=== PATIENT | female | born 1930 | race Caucasian/White ===

== ENCOUNTER 2019-03-11 06:02 | Day surgery (SDC) | payer OTHER ==
[2019-03-11 06:18] LABS: ADD MAN DIFF? NO
[2019-03-11 06:24] LABS: BASOPHILS % 0.6 % (0.0-2.0); EOSINOPHILS # 0.4 10^3/ul (0.0-0.5); EOSINOPHILS % 6.3 % (0.0-7.0); HEMATOCRIT 35.7 % (37.0-47.0); HEMOGLOBIN 11.2 g/dl (12.0-16.0); LYMPHOCYTES % 32.4 % (15.0-51.0); MEAN CORPUSCULAR HEMOGLOBIN 27.7 pg (29.0-33.0); MEAN CORPUSCULAR HGB CONC 31.4 g/dl (32.0-37.0); MEAN CORPUSCULAR VOLUME 88.4 fl (82.0-101.0); MEAN PLATELET VOLUME 9.4 fl (7.4-10.4); MONOCYTE # 0.6 10^3/ul (0.3-0.9); MONOCYTES % 9.8 % (0.0-11.0); NEUTROPHIL # 3.2 10^3/ul (1.6-7.5); NEUTROPHILS % 50.6 % (39.0-77.0); PLATELET COUNT 253 10^3/UL (140-415); RED BLOOD COUNT 4.04 10^6/ul (4.20-5.40); RED CELL DISTRIBUTION WIDTH 13.2 % (11.5-14.5)
[2019-03-11 06:24] LABS: WHITE BLOOD COUNT 6.3 10^3/ul (4.8-10.8)
[2019-03-11 06:41] LABS: ALANINE AMINOTRANSFERASE 11 IU/L (13-69); ALBUMIN 4.1 g/dl (3.3-4.9); ALBUMIN/GLOBULIN RATIO 1.24; ALKALINE PHOSPHATASE 86 IU/L (42-121); ANION GAP 9 (5-13); ASPARTATE AMINO TRANSFERASE 23 IU/L (15-46); BILIRUBIN,INDIRECT 0.3 mg/dl (0-1.1); BILIRUBIN,TOTAL 0.3 mg/dl (0.2-1.3); CALCIUM 9.5 mg/dl (8.4-10.2); CARBON DIOXIDE 25 mmol/L (21-31); CHLORIDE 108 mmol/L (97-110); GLUCOSE 109 mg/dl (70-220); POTASSIUM 4.8 mmol/L (3.5-5.1); TOTAL PROTEIN 7.4 g/dl (6.1-8.1)
[2019-03-11 06:45] LABS: PROTIME 13.3 Sec (11.9-14.9)
[2019-03-11] MEDS ORDERED: HEPARIN 1000 UNITS/ML 10 ML INJ (06:58)
[2019-03-11] MEDS ORDERED: HEPARIN 1000 UNITS/NS (A-LINE) 1,000 ML (06:59)
[2019-03-11] MEDS ORDERED: MIDAZOLAM 1 MG/ML 2 ML INJ (06:59)
[2019-03-11] MEDS ORDERED: LIDOCAINE 1% (MDV) 20 ML INJ (06:59)
[2019-03-11] MEDS ORDERED: FENTAnyl 50 MCG/ML VIAL (06:59)
[2019-03-11] MEDS ORDERED: IODIXANOL LOCM 100 ML BTL (06:59)
[2019-03-11 07:13] LABS: BLOOD UREA NITROGEN 37 mg/dl (7-20)
[2019-03-11 07:16] LABS: SODIUM 142 mmol/L (135-144)
[2019-03-11] MEDS: SOD CHLORIDE 0.9% 1,000 ML IV (09:44)
== END 2019-03-11 15:55 | disposition home or self-care (01) ==
LOC: SDS 06:02
DX: E11.51 Type 2 diabetes mellitus with diabetic peripheral angiopathy without gangrene (principal); I70.235 Atherosclerosis of native arteries of right leg with ulceration of other part of foot; L97.519 Non-pressure chronic ulcer of other part of right foot with unspecified severity; I10 Essential (primary) hypertension
CPT/HCPCS: 36246; 75630; 75710; 80053; 82962; 85025; 85610; 85730

== ENCOUNTER 2019-04-04 00:35 | Inpatient (IN) | payer OTHER ==
[2019-04-04] MEDS ORDERED: NITROGLYCERIN (SL) 0.4 MG TAB SL (07:30)
[2019-04-04] MEDS ORDERED: ACETAMINOPHEN 500 MG TAB PO (07:30)
[2019-04-04] MEDS ORDERED: LORAZEPAM 2 MG INJ IV (07:30)
[2019-04-04] MEDS ORDERED: ALBUTEROL/IPRATROPIUM (NEB) 3 ML AMP HHN (07:30)
[2019-04-04] MEDS ORDERED: MAGNESIUM HYDROXIDE 30ML CUP PO (07:30)
[2019-04-04] MEDS ORDERED: NACL 0.9% 3 ML SYG IV (07:30)
[2019-04-04] MEDS ORDERED: DOCUSATE SODIUM 100 MG CAP PO (07:30)
[2019-04-04] MEDS ORDERED: ONDANSETRON 4 MG INJ IV (07:30)
[2019-04-04] MEDS ORDERED: hydrALAzine 20 MG INJ IV (07:30)
[2019-04-04] MEDS: CHOLECALCIFEROL 1,000 UNIT TAB PO (08:29)
[2019-04-04] MEDS: PANTOPRAZOLE (EC) 40 MG TAB PO (08:29)
[2019-04-04] MEDS: METOPROLOL 25 MG TAB PO ×2 (08:30→20:56)
[2019-04-04] MEDS: HEPARIN 5,000 UNIT/1 ML VIAL SC ×2 (08:33→21:02)
[2019-04-04 08:58] LABS: INR 0.93; PROTIME 12.6 Sec (11.9-14.9)
[2019-04-04 08:59] LABS: PARTIAL THROMBOPLASTIN TIME 27.9 Sec (23.0-35.0)
[2019-04-04 09:18] LABS: FREE T4 (FREE THYROXINE) 1.49 ng/dl (0.85-1.93)
[2019-04-04] MEDS: SOD CHLORIDE 0.45% 1,000 ML IV (09:26)
[2019-04-04] MEDS ORDERED: VANCOMYCIN IV PER PHARMACY XX (11:00)
[2019-04-04] MEDS: VANCOMYCIN HCL 1.25 GM in SOD CHLORIDE 0.9% 250 ML IVPB (13:32)
[2019-04-04] MEDS: COLLAGENASE 5 GM (UD JAR) TOP (19:54)
[2019-04-04] MEDS ORDERED: METOPROLOL 25 MG TAB PO (21:00)
[2019-04-04] MEDS: morphine 2 MG INJ IV (21:02)
[2019-04-04] MEDS: ATORVASTATIN 40 MG TAB PO (21:10)
[2019-04-05 06:46] LABS: ADD MAN DIFF? NO
[2019-04-05 06:50] LABS: BASOPHIL # 0.1 10^3/ul (0.0-0.1); BASOPHILS % 0.8 % (0.0-2.0); EOSINOPHILS # 0.3 10^3/ul (0.0-0.5); EOSINOPHILS % 4.7 % (0.0-7.0); HEMATOCRIT 31.5 % (37.0-47.0); HEMOGLOBIN 9.6 g/dl (12.0-16.0); LYMPHOCYTES # 1.9 10^3/ul (0.8-2.9); LYMPHOCYTES % 28.9 % (15.0-51.0); MEAN CORPUSCULAR HGB CONC 30.5 g/dl (32.0-37.0); MEAN CORPUSCULAR VOLUME 91.8 fl (82.0-101.0); MEAN PLATELET VOLUME 9.6 fl (7.4-10.4); MONOCYTE # 0.7 10^3/ul (0.3-0.9); MONOCYTES % 11.5 % (0.0-11.0); NEUTROPHIL # 3.5 10^3/ul (1.6-7.5); NEUTROPHILS % 53.9 % (39.0-77.0); PLATELET COUNT 240 10^3/UL (140-415); RED BLOOD COUNT 3.43 10^6/ul (4.20-5.40)
[2019-04-05 06:50] LABS: WHITE BLOOD COUNT 6.4 10^3/ul (4.8-10.8)
[2019-04-05] MEDS: CIPROFLOXACIN 500 MG TAB PO (07:07)
[2019-04-05 07:10] LABS: HEMOGLOBIN A1C 6.6 % (0-5.9)
[2019-04-05 07:16] LABS: ANION GAP 5 (5-13); BLOOD UREA NITROGEN 31 mg/dl (7-20); CALCIUM 8.4 mg/dl (8.4-10.2); CARBON DIOXIDE 26 mmol/L (21-31); CHLORIDE 109 mmol/L (97-110); CHOL/HDL RATIO 2.9 RATIO; CHOLESTEROL 119 mg/dl (100-200); CREATININE 1.61 mg/dl (0.44-1.00); GLUCOSE 107 mg/dl (70-220); HDL CHOLESTEROL 41 mg/dl (33-92); LDL CHOLESTEROL,CALCULATED 60 mg/dl; MAGNESIUM 1.8 mg/dl (1.7-2.5); PHOSPHORUS 4.3 mg/dl (2.5-4.9); POTASSIUM 5.5 mmol/L (3.5-5.1); SODIUM 140 mmol/L (135-144); TRIGLYCERIDES 90 mg/dl (0-149)
[2019-04-05 08:01] LABS: ALBUMIN 3.4 g/dl (3.3-4.9)
[2019-04-05 08:11] LABS: PREALBUMIN 12.6 mg/dl (17.6-36.0)
[2019-04-05 08:13] LABS: THYROID STIMULATING HORMONE 0.493 MIU/L (0.465-4.680)
[2019-04-05] MEDS: PANTOPRAZOLE (EC) 40 MG TAB PO (08:58)
[2019-04-05] MEDS: ASPIRIN (EC) 81 MG TAB PO (08:58)
[2019-04-05] MEDS: CHOLECALCIFEROL 1,000 UNIT TAB PO (08:58)
[2019-04-05] MEDS: CLOPIDOGREL 75 MG TAB PO (08:58)
[2019-04-05] MEDS: METOPROLOL 25 MG TAB PO ×2 (08:59→20:40)
[2019-04-05] MEDS: COLLAGENASE 5 GM (UD JAR) TOP (08:59)
[2019-04-05] MEDS: LISINOPRIL 5 MG TAB PO (08:59)
[2019-04-05] MEDS ORDERED: CLOPIDOGREL 75 MG TAB PO (09:00)
[2019-04-05] MEDS ORDERED: ASPIRIN (EC) 81 MG TAB PO (09:00)
[2019-04-05] MEDS ORDERED: PANTOPRAZOLE (EC) 40 MG TAB PO (09:00)
[2019-04-05] MEDS: HEPARIN 5,000 UNIT/1 ML VIAL SC ×2 (09:12→21:16)
[2019-04-05] MEDS: DAKINS 0.0125%(1/40) 473 ML SOLUTION TP ×2 (15:57→20:40)
[2019-04-05] MEDS: CIPROFLOXACIN 250 MG TAB PO (17:38)
[2019-04-05] MEDS: ATORVASTATIN 40 MG TAB PO (20:40)
[2019-04-05 20:49] LABS: ANION GAP 8 (5-13); BLOOD UREA NITROGEN 39 mg/dl (7-20); CALCIUM 8.6 mg/dl (8.4-10.2); CARBON DIOXIDE 22 mmol/L (21-31); CHLORIDE 107 mmol/L (97-110); CREATININE 1.66 mg/dl (0.44-1.00); GLUCOSE 233 mg/dl (70-220); POTASSIUM 5.5 mmol/L (3.5-5.1); SODIUM 137 mmol/L (135-144)
[2019-04-05] MEDS: SODIUM POLYSTYRENE 15 GM KIT (POWDER + SORBITOL) PO (21:54)
[2019-04-05] MEDS: ALBUTEROL 0.083% (NEB) 2.5 MG/3 ML AMP HHN (22:08)
[2019-04-06] MEDS: CIPROFLOXACIN 250 MG TAB PO (06:09)
[2019-04-06 08:42] LABS: ADD MAN DIFF? NO
[2019-04-06 08:45] LABS: WHITE BLOOD COUNT 7.2 10^3/ul (4.8-10.8)
[2019-04-06 08:45] LABS: BASOPHIL # 0.1 10^3/ul (0.0-0.1); BASOPHILS % 0.7 % (0.0-2.0); EOSINOPHILS # 0.3 10^3/ul (0.0-0.5); HEMATOCRIT 31.9 % (37.0-47.0); HEMOGLOBIN 9.7 g/dl (12.0-16.0); LYMPHOCYTES # 2.1 10^3/ul (0.8-2.9); LYMPHOCYTES % 28.7 % (15.0-51.0); MEAN CORPUSCULAR HEMOGLOBIN 27.8 pg (29.0-33.0); MEAN CORPUSCULAR HGB CONC 30.4 g/dl (32.0-37.0); MEAN CORPUSCULAR VOLUME 91.4 fl (82.0-101.0); MEAN PLATELET VOLUME 9.8 fl (7.4-10.4); MONOCYTE # 0.8 10^3/ul (0.3-0.9); MONOCYTES % 11.3 % (0.0-11.0); PLATELET COUNT 243 10^3/UL (140-415); RED BLOOD COUNT 3.49 10^6/ul (4.20-5.40); RED CELL DISTRIBUTION WIDTH 13.9 % (11.5-14.5)
[2019-04-06] MEDS: METOPROLOL 25 MG TAB PO (08:58)
[2019-04-06] MEDS: ASPIRIN (EC) 81 MG TAB PO (08:58)
[2019-04-06] MEDS: PANTOPRAZOLE (EC) 40 MG TAB PO (08:59)
[2019-04-06] MEDS: CHOLECALCIFEROL 1,000 UNIT TAB PO (08:59)
[2019-04-06] MEDS: LISINOPRIL 5 MG TAB PO (08:59)
[2019-04-06] MEDS: CLOPIDOGREL 75 MG TAB PO (08:59)
[2019-04-06] MEDS: DAKINS 0.0125%(1/40) 473 ML SOLUTION TP ×2 (09:00→21:35)
[2019-04-06] MEDS: COLLAGENASE 5 GM (UD JAR) TOP (09:00)
[2019-04-06] MEDS: HEPARIN 5,000 UNIT/1 ML VIAL SC ×2 (09:05→21:32)
[2019-04-06 09:16] LABS: ANION GAP 8 (5-13); BLOOD UREA NITROGEN 31 mg/dl (7-20); CALCIUM 8.8 mg/dl (8.4-10.2); CARBON DIOXIDE 24 mmol/L (21-31); CHLORIDE 108 mmol/L (97-110); CREATININE 1.66 mg/dl (0.44-1.00); GLUCOSE 92 mg/dl (70-220); POTASSIUM 4.5 mmol/L (3.5-5.1); SODIUM 140 mmol/L (135-144)
[2019-04-06] MEDS ORDERED: GLUCAGON 1 MG INJ IM (11:00)
[2019-04-06] MEDS ORDERED: GLUCOSE GEL 15 GRAM TUBE PO ×2 (11:00)
[2019-04-06] MEDS ORDERED: DEXTROSE 50% 50 ML SYRINGE IV ×2 (11:00)
[2019-04-06] MEDS ORDERED: GLUCOSE GEL 15 GRAM TUBE BUCCAL (11:00)
[2019-04-06] MEDS: INSULIN ASPART [NOVOLOG] 3 ML PEN SC ×3 (11:40→21:33)
[2019-04-06] MEDS: LACTOBACILLUS RHAMNOSUS CAP PO ×2 (12:50→21:27)
[2019-04-06] MEDS: VANCOMYCIN 1 GM 250 ML IVPB (12:53)
[2019-04-06] MEDS: MEROPENEM 1 GM/50ML(PMX) 50 ML IVPB (18:50)
[2019-04-06] MEDS: ATORVASTATIN 40 MG TAB PO (21:27)
[2019-04-06] MEDS: METOPROLOL 50 MG TAB PO (21:27)
[2019-04-07] MEDS: ACCU-CHEK XX (02:00)
[2019-04-07 05:17] LABS: ADD MAN DIFF? NO
[2019-04-07 05:23] LABS: BASOPHIL # 0.1 10^3/ul (0.0-0.1); BASOPHILS % 1.1 % (0.0-2.0); EOSINOPHILS # 0.5 10^3/ul (0.0-0.5); EOSINOPHILS % 7.4 % (0.0-7.0); HEMATOCRIT 31.4 % (37.0-47.0); HEMOGLOBIN 9.5 g/dl (12.0-16.0); LYMPHOCYTES # 1.8 10^3/ul (0.8-2.9); LYMPHOCYTES % 28.5 % (15.0-51.0); MEAN CORPUSCULAR HEMOGLOBIN 27.4 pg (29.0-33.0); MEAN CORPUSCULAR HGB CONC 30.3 g/dl (32.0-37.0); MEAN CORPUSCULAR VOLUME 90.5 fl (82.0-101.0); MEAN PLATELET VOLUME 9.7 fl (7.4-10.4); MONOCYTE # 0.7 10^3/ul (0.3-0.9); NEUTROPHIL # 3.3 10^3/ul (1.6-7.5); NEUTROPHILS % 51.8 % (39.0-77.0); PLATELET COUNT 249 10^3/UL (140-415); RED BLOOD COUNT 3.47 10^6/ul (4.20-5.40); RED CELL DISTRIBUTION WIDTH 14.1 % (11.5-14.5)
[2019-04-07 05:23] LABS: WHITE BLOOD COUNT 6.4 10^3/ul (4.8-10.8)
[2019-04-07] MEDS: MEROPENEM 1 GM/50ML(PMX) 50 ML IVPB ×2 (05:39→17:29)
[2019-04-07 05:46] LABS: ANION GAP 7 (5-13); BLOOD UREA NITROGEN 33 mg/dl (7-20); CALCIUM 8.5 mg/dl (8.4-10.2); CARBON DIOXIDE 24 mmol/L (21-31); CHLORIDE 110 mmol/L (97-110); GLUCOSE 104 mg/dl (70-220); SODIUM 141 mmol/L (135-144)
[2019-04-07 05:55] LABS: HEMOGLOBIN A1C 6.8 % (0-5.9)
[2019-04-07] MEDS: INSULIN ASPART [NOVOLOG] 3 ML PEN SC ×4 (07:50→21:21)
[2019-04-07 08:00] LABS: ERYTHROCYTE SEDIMENTATION RATE 45 mm/Hr (0-30)
[2019-04-07] MEDS: CHOLECALCIFEROL 1,000 UNIT TAB PO (08:44)
[2019-04-07] MEDS: CLOPIDOGREL 75 MG TAB PO (08:46)
[2019-04-07] MEDS: METOPROLOL 50 MG TAB PO ×2 (08:46→20:51)
[2019-04-07] MEDS: LACTOBACILLUS RHAMNOSUS CAP PO ×2 (08:46→20:50)
[2019-04-07] MEDS: ASPIRIN (EC) 81 MG TAB PO (08:47)
[2019-04-07] MEDS: LISINOPRIL 5 MG TAB PO (08:47)
[2019-04-07] MEDS: PANTOPRAZOLE (EC) 40 MG TAB PO (08:47)
[2019-04-07] MEDS: HEPARIN 5,000 UNIT/1 ML VIAL SC (08:48)
[2019-04-07] MEDS: COLLAGENASE 5 GM (UD JAR) TOP (08:49)
[2019-04-07] MEDS: DAKINS 0.0125%(1/40) 473 ML SOLUTION TP ×2 (08:49→21:22)
[2019-04-07] MEDS: ATORVASTATIN 40 MG TAB PO (20:50)
[2019-04-08] MEDS: ACCU-CHEK XX (02:00)
[2019-04-08 05:00] LABS: ADD MAN DIFF? NO
[2019-04-08 05:01] LABS: WHITE BLOOD COUNT 6.5 10^3/ul (4.8-10.8)
[2019-04-08 05:01] LABS: BASOPHILS % 0.6 % (0.0-2.0); EOSINOPHILS # 0.4 10^3/ul (0.0-0.5); EOSINOPHILS % 5.8 % (0.0-7.0); HEMATOCRIT 29.7 % (37.0-47.0); HEMOGLOBIN 9.2 g/dl (12.0-16.0); LYMPHOCYTES # 1.8 10^3/ul (0.8-2.9); LYMPHOCYTES % 28.1 % (15.0-51.0); MEAN CORPUSCULAR VOLUME 90.3 fl (82.0-101.0); MEAN PLATELET VOLUME 9.7 fl (7.4-10.4); MONOCYTE # 0.7 10^3/ul (0.3-0.9); NEUTROPHIL # 3.5 10^3/ul (1.6-7.5); NEUTROPHILS % 54.2 % (39.0-77.0); PLATELET COUNT 253 10^3/UL (140-415); RED BLOOD COUNT 3.29 10^6/ul (4.20-5.40); RED CELL DISTRIBUTION WIDTH 14.1 % (11.5-14.5)
[2019-04-08 05:19] LABS: PHOSPHORUS 4.7 mg/dl (2.5-4.9)
[2019-04-08 05:19] LABS: MAGNESIUM 1.6 mg/dl (1.7-2.5)
[2019-04-08 05:50] LABS: THYROID STIMULATING HORMONE 0.522 MIU/L (0.465-4.680)
[2019-04-08] MEDS: MEROPENEM 1 GM/50ML(PMX) 50 ML IVPB ×2 (06:00→18:41)
[2019-04-08 06:11] LABS: ANION GAP 8 (5-13); BLOOD UREA NITROGEN 39 mg/dl (7-20); CALCIUM 8.6 mg/dl (8.4-10.2); CARBON DIOXIDE 20 mmol/L (21-31); CHLORIDE 112 mmol/L (97-110); CREATININE 1.68 mg/dl (0.44-1.00); GLUCOSE 118 mg/dl (70-220); POTASSIUM 4.5 mmol/L (3.5-5.1); SODIUM 140 mmol/L (135-144)
[2019-04-08] MEDS: LISINOPRIL 5 MG TAB PO (09:00)
[2019-04-08] MEDS: METOPROLOL 50 MG TAB PO ×2 (09:00→21:00)
[2019-04-08] MEDS: INSULIN ASPART [NOVOLOG] 3 ML PEN SC ×4 (09:00→21:43)
[2019-04-08] MEDS: COLLAGENASE 5 GM (UD JAR) TOP (09:00)
[2019-04-08] MEDS: PANTOPRAZOLE (EC) 40 MG TAB PO (09:10)
[2019-04-08] MEDS: LACTOBACILLUS RHAMNOSUS CAP PO ×2 (09:10→21:32)
[2019-04-08] MEDS: CHOLECALCIFEROL 1,000 UNIT TAB PO (09:10)
[2019-04-08] MEDS: DAKINS 0.0125%(1/40) 473 ML SOLUTION TP ×2 (09:11→21:44)
[2019-04-08] MEDS: ACETAMINOPHEN 325 MG TAB PO (10:54)
[2019-04-08 13:54] LABS: VANCOMYCIN,TROUGH 9.1 ug/ml (10.0-20.0)
[2019-04-08] MEDS: VANCOMYCIN 1 GM 250 ML IVPB (14:22)
[2019-04-08] MEDS: LIDOCAINE 1% (MPF) 5 ML VIAL SC (15:05)
[2019-04-08] MEDS: LEVOFLOXACIN 500 MG TAB PO (21:31)
[2019-04-08] MEDS: ATORVASTATIN 40 MG TAB PO (21:33)
[2019-04-09] MEDS: ACCU-CHEK XX (02:00)
[2019-04-09 05:56] LABS: ADD MAN DIFF? NO
[2019-04-09 06:06] LABS: WHITE BLOOD COUNT 8.3 10^3/ul (4.8-10.8)
[2019-04-09 06:06] LABS: BASOPHIL # 0.1 10^3/ul (0.0-0.1); BASOPHILS % 0.6 % (0.0-2.0); EOSINOPHILS # 0.4 10^3/ul (0.0-0.5); EOSINOPHILS % 5.3 % (0.0-7.0); HEMATOCRIT 34.2 % (37.0-47.0); HEMOGLOBIN 10.4 g/dl (12.0-16.0); LYMPHOCYTES # 2.3 10^3/ul (0.8-2.9); LYMPHOCYTES % 28.3 % (15.0-51.0); MEAN CORPUSCULAR HEMOGLOBIN 27.8 pg (29.0-33.0); MEAN CORPUSCULAR HGB CONC 30.4 g/dl (32.0-37.0); MEAN CORPUSCULAR VOLUME 91.4 fl (82.0-101.0); MEAN PLATELET VOLUME 9.8 fl (7.4-10.4); MONOCYTE # 0.7 10^3/ul (0.3-0.9); NEUTROPHIL # 4.8 10^3/ul (1.6-7.5); NEUTROPHILS % 57.6 % (39.0-77.0); PLATELET COUNT 260 10^3/UL (140-415); RED BLOOD COUNT 3.74 10^6/ul (4.20-5.40)
[2019-04-09 06:39] LABS: ANION GAP 9 (5-13); BLOOD UREA NITROGEN 41 mg/dl (7-20); CALCIUM 9.1 mg/dl (8.4-10.2); CARBON DIOXIDE 23 mmol/L (21-31); CHLORIDE 108 mmol/L (97-110); CREATININE 1.62 mg/dl (0.44-1.00); GLUCOSE 115 mg/dl (70-220); POTASSIUM 5.2 mmol/L (3.5-5.1); SODIUM 140 mmol/L (135-144)
[2019-04-09] MEDS: MEROPENEM 1 GM/50ML(PMX) 50 ML IVPB ×2 (06:48→12:34)
[2019-04-09] MEDS: INSULIN ASPART [NOVOLOG] 3 ML PEN SC ×2 (07:50→11:40)
[2019-04-09] MEDS: LACTOBACILLUS RHAMNOSUS CAP PO (08:30)
[2019-04-09] MEDS: CHOLECALCIFEROL 1,000 UNIT TAB PO (08:30)
[2019-04-09] MEDS: HYDROCODONE/APAP (5/325) TAB PO (08:30)
[2019-04-09] MEDS: PANTOPRAZOLE (EC) 40 MG TAB PO (08:30)
[2019-04-09] MEDS: METOPROLOL 50 MG TAB PO (08:31)
[2019-04-09] MEDS: APIXABAN 5 MG TABLET PO (08:31)
[2019-04-09] MEDS: LISINOPRIL 5 MG TAB PO (08:32)
[2019-04-09] MEDS: COLLAGENASE 5 GM (UD JAR) TOP (08:56)
[2019-04-09] MEDS: DAKINS 0.0125%(1/40) 473 ML SOLUTION TP (08:56)
[2019-04-10] MEDS ORDERED: VANCOMYCIN HCL 1.25 GM in SOD CHLORIDE 0.9% 250 ML IVPB (12:00)
== END 2019-04-09 15:57 | disposition home health service (06) | DRG 638 ==
LOC: TEL 00:35 → MS1 04-06 07:08
PROVIDERS: Hospitalist
PROC: 02HV33Z Insertion of Infusion Device into Superior Vena Cava, Percutaneous Approach (ICD-10-PCS; principal; 2019-04-08)
DX: E11.621 Type 2 diabetes mellitus with foot ulcer (principal); L03.115 Cellulitis of right lower limb; I13.0 Hypertensive heart and chronic kidney disease with heart failure and stage 1 through stage 4 chronic kidney disease, or unspecified chronic kidney disease; I50.30 Unspecified diastolic (congestive) heart failure; M86.171 Other acute osteomyelitis, right ankle and foot; E11.69 Type 2 diabetes mellitus with other specified complication; L97.519 Non-pressure chronic ulcer of other part of right foot with unspecified severity; E11.51 Type 2 diabetes mellitus with diabetic peripheral angiopathy without gangrene; E11.22 Type 2 diabetes mellitus with diabetic chronic kidney disease; I48.91 Unspecified atrial fibrillation; I08.3 Combined rheumatic disorders of mitral, aortic and tricuspid valves; I99.8 Other disorder of circulatory system; N18.3 Chronic kidney disease, stage 3 (moderate); E88.81 Metabolic syndrome and other insulin resistance; D63.8 Anemia in other chronic diseases classified elsewhere; R62.7 Adult failure to thrive; I70.201 Unspecified atherosclerosis of native arteries of extremities, right leg; Z88.0 Allergy status to penicillin
CPT/HCPCS: 36569; 71045; 73718; 76937; 80048; 80061; 80202; 82040; 82962; 83036; 83735; 84100; 84134; 84439; 84443; 85025; 85610; 85651; 85730; 87040-91; 87070; 92610; 93005; 93306; 94664; 97162; 97167

== ENCOUNTER 2019-04-22 06:06 | Inpatient (IN) | payer OTHER ==
[2019-04-22 07:03] LABS: ADD MAN DIFF? NO
[2019-04-22 07:08] LABS: BASOPHIL # 0.1 10^3/ul (0.0-0.1); BASOPHILS % 0.8 % (0.0-2.0); EOSINOPHILS # 0.4 10^3/ul (0.0-0.5); EOSINOPHILS % 4.5 % (0.0-7.0); HEMATOCRIT 29.6 % (37.0-47.0); HEMOGLOBIN 9.1 g/dl (12.0-16.0); LYMPHOCYTES # 2.1 10^3/ul (0.8-2.9); LYMPHOCYTES % 25.7 % (15.0-51.0); MEAN CORPUSCULAR HGB CONC 30.7 g/dl (32.0-37.0); MEAN CORPUSCULAR VOLUME 87.8 fl (82.0-101.0); MEAN PLATELET VOLUME 9.6 fl (7.4-10.4); MONOCYTE # 0.8 10^3/ul (0.3-0.9); MONOCYTES % 9.5 % (0.0-11.0); NEUTROPHIL # 4.9 10^3/ul (1.6-7.5); NEUTROPHILS % 59.3 % (39.0-77.0); PLATELET COUNT 292 10^3/UL (140-415); RED BLOOD COUNT 3.37 10^6/ul (4.20-5.40); RED CELL DISTRIBUTION WIDTH 13.3 % (11.5-14.5)
[2019-04-22 07:08] LABS: WHITE BLOOD COUNT 8.3 10^3/ul (4.8-10.8)
[2019-04-22 07:12] LABS: HOLD TRANSMISSIONS 1
[2019-04-22 07:25] LABS: INR 1.03; PROTIME 13.6 Sec (11.9-14.9); PT RATIO 1.1
[2019-04-22 07:26] LABS: PARTIAL THROMBOPLASTIN TIME 31.1 Sec (23.0-35.0)
[2019-04-22 07:30] LABS: ALANINE AMINOTRANSFERASE 15 IU/L (13-69); ALBUMIN 3.3 g/dl (3.3-4.9); ALKALINE PHOSPHATASE 90 IU/L (42-121); ANION GAP 10 (5-13); ASPARTATE AMINO TRANSFERASE 24 IU/L (15-46); BILIRUBIN,INDIRECT 0.3 mg/dl (0-1.1); BILIRUBIN,TOTAL 0.3 mg/dl (0.2-1.3); CALCIUM 8.7 mg/dl (8.4-10.2); CARBON DIOXIDE 23 mmol/L (21-31); CHLORIDE 106 mmol/L (97-110); GLUCOSE 87 mg/dl (70-220); POTASSIUM 5.1 mmol/L (3.5-5.1); SODIUM 139 mmol/L (135-144); TOTAL PROTEIN 6.6 g/dl (6.1-8.1)
[2019-04-22] MEDS: THROMBIN 5000 UNIT VIAL TOP (07:30)
[2019-04-22] MEDS ORDERED: GELATIN SIZE 100 SPONGE (07:30)
[2019-04-22] MEDS ORDERED: LIDOCAINE 1% (MPF) 30 ML INJ (07:30)
[2019-04-22] MEDS: GELATIN 2 SQ INCH SPONGE TOP (07:30)
[2019-04-22] MEDS ORDERED: THROMBIN 5000 UNIT VIAL (07:30)
[2019-04-22] MEDS: HEPARIN 1000 UNITS/ML 10 ML INJ IRR (07:30)
[2019-04-22] MEDS ORDERED: HEPARIN 1000 UNITS/ML 10 ML INJ ×2 (07:31→09:11)
[2019-04-22 07:32] LABS: BLOOD UREA NITROGEN 39 mg/dl (7-20); CREATININE 1.69 mg/dl (0.44-1.00)
[2019-04-22] MEDS ORDERED: SOD CHLORIDE 0.9% 1,000 ML IV (08:00)
[2019-04-22] MEDS ORDERED: FENTAnyl 50 MCG/ML VIAL (08:20)
[2019-04-22] MEDS ORDERED: ONDANSETRON 4 MG INJ IV ×2 (09:30→12:00)
[2019-04-22] MEDS ORDERED: ALBUTEROL 0.083% (NEB) 2.5 MG/3 ML AMP HHN (09:30)
[2019-04-22] MEDS ORDERED: HYDROmorphONE 1 MG/5 ML IV SYRINGE IV (09:30)
[2019-04-22] MEDS ORDERED: METOCLOPRAMIDE 10 MG INJ IV (09:30)
[2019-04-22] MEDS ORDERED: DIPHENHYDRAMINE 50 MG INJ IV (09:30)
[2019-04-22] MEDS ORDERED: FENTAnyl 50 MCG/ML VIAL IV (09:30)
[2019-04-22] MEDS ORDERED: PROTAMINE 250 MG INJ (09:40)
[2019-04-22] MEDS ORDERED: ROCURONIUM 50 MG INJ (10:00)
[2019-04-22] MEDS ORDERED: LIDOCAINE 100 MG SYRINGE (10:00)
[2019-04-22] MEDS ORDERED: SUGAMMADEX SODIUM 200 MG/2 ML VIAL IV (10:00)
[2019-04-22] MEDS ORDERED: CLINDAMYCIN 600 MG/D5W (PMX) 50 ML IVPB (10:00)
[2019-04-22] MEDS ORDERED: PROPOFOL 20 ML (10:00)
[2019-04-22] MEDS ORDERED: SUCCINYLCHOLINE CHLORIDE 100 MG/5 ML SYG IV (10:00)
[2019-04-22] MEDS ORDERED: ALBUTEROL/IPRATROPIUM (NEB) 3 ML AMP HHN (12:00)
[2019-04-22] MEDS ORDERED: LORAZEPAM 2 MG INJ IV (12:00)
[2019-04-22] MEDS ORDERED: hydrALAzine 20 MG INJ IV (12:00)
[2019-04-22] MEDS ORDERED: MECLIZINE 25 MG TAB PO (12:00)
[2019-04-22] MEDS ORDERED: MAGNESIUM HYDROXIDE 30ML CUP PO (12:00)
[2019-04-22] MEDS ORDERED: NITROGLYCERIN (SL) 0.4 MG TAB SL (12:00)
[2019-04-22] MEDS ORDERED: NACL 0.9% 3 ML SYG IV (12:00)
[2019-04-22] MEDS ORDERED: DOCUSATE SODIUM 100 MG CAP PO (12:00)
[2019-04-22] MEDS: INSULIN ASPART [NOVOLOG] 3 ML PEN SC ×3 (13:00→20:48)
[2019-04-22] MEDS ORDERED: GABAPENTIN 300 MG CAP (13:56)
[2019-04-22] MEDS: GABAPENTIN 300 MG CAP PO ×2 (14:02→20:44)
[2019-04-22] MEDS: morphine 2 MG INJ IV (14:17)
[2019-04-22] MEDS: ERTAPENEM SODIUM 0.5 GM in SOD CHLORIDE 0.9% 100 ML IVPB (15:43)
[2019-04-22] MEDS: LEVOFLOXACIN 500 MG TAB PO (17:38)
[2019-04-22 18:39] LABS: C-REACTIVE PROTEIN 2.5 mg/dl (0.0-0.9)
[2019-04-22 19:27] LABS: ERYTHROCYTE SEDIMENTATION RATE 35 mm/Hr (0-30)
[2019-04-22 20:11] LABS: PROCALCITONIN 0.05 ng/mL (0.00-0.10)
[2019-04-22] MEDS: ATORVASTATIN 10 MG TAB PO (20:44)
[2019-04-22] MEDS: METOPROLOL 25 MG TAB PO (20:45)
[2019-04-22 22:36] LABS: FREE T4 (FREE THYROXINE) 1.94 ng/dl (0.85-1.93)
[2019-04-23] MEDS: HYDROCODONE/APAP (5/325) TAB PO (00:47)
[2019-04-23] MEDS: SOD CHLORIDE 0.9% 1,000 ML IV (01:45)
[2019-04-23] MEDS: ACCU-CHEK XX (01:54)
[2019-04-23 05:39] LABS: ADD MAN DIFF? NO
[2019-04-23 05:44] LABS: BASOPHILS % 0.4 % (0.0-2.0); EOSINOPHILS % 0.1 % (0.0-7.0); HEMATOCRIT 24.3 % (37.0-47.0); HEMOGLOBIN 7.6 g/dl (12.0-16.0); LYMPHOCYTES # 1.4 10^3/ul (0.8-2.9); LYMPHOCYTES % 13.8 % (15.0-51.0); MEAN CORPUSCULAR HEMOGLOBIN 27.6 pg (29.0-33.0); MEAN CORPUSCULAR HGB CONC 31.3 g/dl (32.0-37.0); MEAN CORPUSCULAR VOLUME 88.4 fl (82.0-101.0); MEAN PLATELET VOLUME 9.6 fl (7.4-10.4); MONOCYTE # 0.9 10^3/ul (0.3-0.9); MONOCYTES % 9.5 % (0.0-11.0); NEUTROPHIL # 7.5 10^3/ul (1.6-7.5); NEUTROPHILS % 75.9 % (39.0-77.0); PLATELET COUNT 231 10^3/UL (140-415); RED BLOOD COUNT 2.75 10^6/ul (4.20-5.40); RED CELL DISTRIBUTION WIDTH 13.5 % (11.5-14.5)
[2019-04-23 05:44] LABS: WHITE BLOOD COUNT 9.9 10^3/ul (4.8-10.8)
[2019-04-23 06:16] LABS: ANION GAP 8 (5-13); BLOOD UREA NITROGEN 27 mg/dl (7-20); CALCIUM 7.4 mg/dl (8.4-10.2); CARBON DIOXIDE 20 mmol/L (21-31); CHLORIDE 112 mmol/L (97-110); CHOL/HDL RATIO 2.8 RATIO; CHOLESTEROL 84 mg/dl (100-200); CREATININE 1.33 mg/dl (0.44-1.00); GLUCOSE 85 mg/dl (70-220); HDL CHOLESTEROL 29 mg/dl (33-92); LDL CHOLESTEROL,CALCULATED 38 mg/dl; MAGNESIUM 1.7 mg/dl (1.7-2.5); PHOSPHORUS 3.2 mg/dl (2.5-4.9); POTASSIUM 5.1 mmol/L (3.5-5.1); SODIUM 140 mmol/L (135-144); TRIGLYCERIDES 84 mg/dl (0-149)
[2019-04-23 06:44] LABS: THYROID STIMULATING HORMONE 0.307 MIU/L (0.465-4.680)
[2019-04-23 07:28] LABS: HEMOGLOBIN A1C 6.4 % (0-5.9)
[2019-04-23] MEDS: INSULIN ASPART [NOVOLOG] 3 ML PEN SC ×4 (07:35→21:00)
[2019-04-23] MEDS: DAKINS 0.0125%(1/40) 473 ML SOLUTION TP (08:29)
[2019-04-23] MEDS: PANTOPRAZOLE (EC) 40 MG TAB PO (08:37)
[2019-04-23] MEDS: GABAPENTIN 300 MG CAP PO ×3 (08:37→20:58)
[2019-04-23] MEDS: CHOLECALCIFEROL 1,000 UNIT TAB PO (08:37)
[2019-04-23] MEDS: METOPROLOL 25 MG TAB PO ×2 (08:38→20:53)
[2019-04-23] MEDS: ERTAPENEM SODIUM 0.5 GM in SOD CHLORIDE 0.9% 100 ML IVPB (13:29)
[2019-04-23] MEDS: LACTATED RINGER'S 500 ML IV (16:21)
[2019-04-23] MEDS: ACETAMINOPHEN 325 MG TAB PO (16:53)
[2019-04-23] MEDS: LACTATED RINGER'S 1,000 ML IV (19:43)
[2019-04-23] MEDS: ATORVASTATIN 10 MG TAB PO (20:58)
[2019-04-23] MEDS: APIXABAN 5 MG TABLET PO (20:58)
[2019-04-24] MEDS: MELATONIN 3 MG TABLET PO ×2 (01:46→22:26)
[2019-04-24] MEDS: ACCU-CHEK XX (02:00)
[2019-04-24 06:22] LABS: ADD MAN DIFF? NO
[2019-04-24 06:29] LABS: WHITE BLOOD COUNT 13.6 10^3/ul (4.8-10.8)
[2019-04-24 06:29] LABS: BASOPHILS % 0.3 % (0.0-2.0); EOSINOPHILS # 0.1 10^3/ul (0.0-0.5); EOSINOPHILS % 0.4 % (0.0-7.0); LYMPHOCYTES # 1.4 10^3/ul (0.8-2.9); MEAN CORPUSCULAR HEMOGLOBIN 27.3 pg (29.0-33.0); MEAN CORPUSCULAR HGB CONC 30.8 g/dl (32.0-37.0); MEAN CORPUSCULAR VOLUME 88.7 fl (82.0-101.0); MEAN PLATELET VOLUME 9.5 fl (7.4-10.4); MONOCYTE # 1.2 10^3/ul (0.3-0.9); MONOCYTES % 9.1 % (0.0-11.0); NEUTROPHIL # 10.8 10^3/ul (1.6-7.5); NEUTROPHILS % 79.7 % (39.0-77.0); PLATELET COUNT 225 10^3/UL (140-415); RED BLOOD COUNT 2.93 10^6/ul (4.20-5.40); RED CELL DISTRIBUTION WIDTH 13.7 % (11.5-14.5)
[2019-04-24 07:03] LABS: ANION GAP 7 (5-13); BLOOD UREA NITROGEN 29 mg/dl (7-20); CALCIUM 7.6 mg/dl (8.4-10.2); CARBON DIOXIDE 22 mmol/L (21-31); CHLORIDE 108 mmol/L (97-110); CREATININE 1.66 mg/dl (0.44-1.00); GLUCOSE 76 mg/dl (70-220); POTASSIUM 5.2 mmol/L (3.5-5.1); SODIUM 137 mmol/L (135-144)
[2019-04-24] MEDS: INSULIN ASPART [NOVOLOG] 3 ML PEN SC ×4 (07:55→21:00)
[2019-04-24] MEDS: METOPROLOL 25 MG TAB PO ×2 (08:37→21:00)
[2019-04-24] MEDS: APIXABAN 5 MG TABLET PO ×2 (08:37→22:20)
[2019-04-24] MEDS: PANTOPRAZOLE (EC) 40 MG TAB PO (08:37)
[2019-04-24] MEDS: GABAPENTIN 300 MG CAP PO ×3 (08:37→22:20)
[2019-04-24] MEDS: DAKINS 0.0125%(1/40) 473 ML SOLUTION TP (08:37)
[2019-04-24] MEDS: CHOLECALCIFEROL 1,000 UNIT TAB PO (08:37)
[2019-04-24] MEDS: LACTATED RINGER'S 1,000 ML IV (10:18)
[2019-04-24] MEDS: ERTAPENEM SODIUM 0.5 GM in SOD CHLORIDE 0.9% 100 ML IVPB (14:59)
[2019-04-24] MEDS: LEVOFLOXACIN 500 MG TAB PO (17:39)
[2019-04-24] MEDS ORDERED: MELATONIN 3 MG TABLET PO (21:00)
[2019-04-24] MEDS: ATORVASTATIN 10 MG TAB PO (22:20)
[2019-04-25] MEDS: LACTATED RINGER'S 1,000 ML IV ×2 (00:24→11:48)
[2019-04-25] MEDS: ACETAMINOPHEN 325 MG TAB PO (00:33)
[2019-04-25] MEDS: ACCU-CHEK XX (02:00)
[2019-04-25 06:35] LABS: ADD MAN DIFF? NO
[2019-04-25 06:47] LABS: BASOPHILS % 0.3 % (0.0-2.0); EOSINOPHILS # 0.1 10^3/ul (0.0-0.5); EOSINOPHILS % 0.8 % (0.0-7.0); HEMATOCRIT 23.6 % (37.0-47.0); HEMOGLOBIN 7.3 g/dl (12.0-16.0); LYMPHOCYTES # 1.8 10^3/ul (0.8-2.9); LYMPHOCYTES % 15.2 % (15.0-51.0); MEAN CORPUSCULAR HEMOGLOBIN 27.7 pg (29.0-33.0); MEAN CORPUSCULAR HGB CONC 30.9 g/dl (32.0-37.0); MEAN CORPUSCULAR VOLUME 89.4 fl (82.0-101.0); MEAN PLATELET VOLUME 9.7 fl (7.4-10.4); MONOCYTES % 8.9 % (0.0-11.0); NEUTROPHIL # 8.6 10^3/ul (1.6-7.5); NEUTROPHILS % 74.1 % (39.0-77.0); PLATELET COUNT 230 10^3/UL (140-415); RED BLOOD COUNT 2.64 10^6/ul (4.20-5.40); RED CELL DISTRIBUTION WIDTH 13.4 % (11.5-14.5)
[2019-04-25 06:47] LABS: WHITE BLOOD COUNT 11.6 10^3/ul (4.8-10.8)
[2019-04-25 07:05] LABS: ANION GAP 7 (5-13); BLOOD UREA NITROGEN 25 mg/dl (7-20); CALCIUM 7.4 mg/dl (8.4-10.2); CARBON DIOXIDE 22 mmol/L (21-31); CHLORIDE 107 mmol/L (97-110); GLUCOSE 91 mg/dl (70-220); POTASSIUM 4.9 mmol/L (3.5-5.1); SODIUM 136 mmol/L (135-144)
[2019-04-25] MEDS: INSULIN ASPART [NOVOLOG] 3 ML PEN SC ×4 (07:55→20:48)
[2019-04-25] MEDS: CHOLECALCIFEROL 1,000 UNIT TAB PO (08:35)
[2019-04-25] MEDS: PANTOPRAZOLE (EC) 40 MG TAB PO (08:35)
[2019-04-25] MEDS: GABAPENTIN 300 MG CAP PO ×3 (08:35→20:50)
[2019-04-25] MEDS: APIXABAN 5 MG TABLET PO ×2 (08:36→20:49)
[2019-04-25] MEDS: DAKINS 0.0125%(1/40) 473 ML SOLUTION TP (08:36)
[2019-04-25] MEDS: METOPROLOL 25 MG TAB PO ×2 (08:37→20:49)
[2019-04-25 12:59] LABS: LACTIC ACID 0.9 mmol/L (0.5-2.0)
[2019-04-25 13:29] LABS: ETHANOL < 10.0 mg/dl (0-0)
[2019-04-25 13:39] LABS: PROCALCITONIN 0.39 ng/mL (0.00-0.10)
[2019-04-25] MEDS: ERTAPENEM SODIUM 0.5 GM in SOD CHLORIDE 0.9% 100 ML IVPB (15:41)
[2019-04-25 18:26] LABS: ADD UMIC YES; UR ASCORBIC ACID NEGATIVE (NEGATIVE); UR BACTERIA FEW /HPF (NONE SEEN); UR BILIRUBIN (Dip) NEGATIVE (NEGATIVE); UR BLOOD (Dip) 1+ mg/dL (NEGATIVE); UR CLARITY CLEAR (CLEAR); UR COLOR YELLOW (YELLOW); UR GLUCOSE (Dip) NEGATIVE (NEGATIVE); UR KETONES (Dip) NEGATIVE (NEGATIVE); UR LEUKOCYTE ESTERASE (Dip) NEGATIVE Leu/ul (NEGATIVE); UR NITRITE (Dip) NEGATIVE (NEGATIVE); UR RBC 1 /HPF (0-5); UR SPECIFIC GRAVITY (Dip) 1.012 (1.003-1.030); UR TOTAL PROTEIN (Dip) 2+ mg/dl (NEGATIVE); UR UROBILINOGEN (Dip) NEGATIVE (NEGATIVE); UR WBC 2 /HPF (0-5)
[2019-04-25] MEDS: ATORVASTATIN 10 MG TAB PO (20:48)
[2019-04-26] MEDS: LACTATED RINGER'S 1,000 ML IV ×2 (01:24→13:23)
[2019-04-26] MEDS: ACCU-CHEK XX (02:00)
[2019-04-26] MEDS: ACETAMINOPHEN 325 MG TAB PO (04:05)
[2019-04-26 07:02] LABS: ADD MAN DIFF? NO
[2019-04-26 07:05] LABS: WHITE BLOOD COUNT 9.5 10^3/ul (4.8-10.8)
[2019-04-26 07:05] LABS: BASOPHILS % 0.3 % (0.0-2.0); EOSINOPHILS # 0.1 10^3/ul (0.0-0.5); EOSINOPHILS % 1.3 % (0.0-7.0); HEMATOCRIT 24.4 % (37.0-47.0); HEMOGLOBIN 7.6 g/dl (12.0-16.0); LYMPHOCYTES # 0.9 10^3/ul (0.8-2.9); LYMPHOCYTES % 9.9 % (15.0-51.0); MEAN CORPUSCULAR HEMOGLOBIN 27.5 pg (29.0-33.0); MEAN CORPUSCULAR HGB CONC 31.1 g/dl (32.0-37.0); MEAN CORPUSCULAR VOLUME 88.4 fl (82.0-101.0); MEAN PLATELET VOLUME 9.3 fl (7.4-10.4); MONOCYTE # 0.9 10^3/ul (0.3-0.9); NEUTROPHIL # 7.5 10^3/ul (1.6-7.5); NEUTROPHILS % 79.2 % (39.0-77.0); PLATELET COUNT 240 10^3/UL (140-415); RED BLOOD COUNT 2.76 10^6/ul (4.20-5.40); RED CELL DISTRIBUTION WIDTH 13.6 % (11.5-14.5)
[2019-04-26 07:35] LABS: ANION GAP 6 (5-13); BLOOD UREA NITROGEN 29 mg/dl (7-20); CALCIUM 7.5 mg/dl (8.4-10.2); CARBON DIOXIDE 20 mmol/L (21-31); CHLORIDE 107 mmol/L (97-110); GLUCOSE 82 mg/dl (70-220); POTASSIUM 5.9 mmol/L (3.5-5.1); SODIUM 133 mmol/L (135-144)
[2019-04-26] MEDS: INSULIN ASPART [NOVOLOG] 3 ML PEN SC ×4 (07:55→20:40)
[2019-04-26] MEDS: METOPROLOL 25 MG TAB PO ×2 (09:00→20:39)
[2019-04-26] MEDS: GABAPENTIN 300 MG CAP PO ×3 (09:10→20:40)
[2019-04-26] MEDS: APIXABAN 5 MG TABLET PO ×2 (09:10→20:40)
[2019-04-26] MEDS: PANTOPRAZOLE (EC) 40 MG TAB PO (09:10)
[2019-04-26] MEDS: CHOLECALCIFEROL 1,000 UNIT TAB PO (09:10)
[2019-04-26] MEDS: DAKINS 0.0125%(1/40) 473 ML SOLUTION TP (09:11)
[2019-04-26 11:42] LABS: ANION GAP 8 (5-13); BLOOD UREA NITROGEN 26 mg/dl (7-20); CALCIUM 7.5 mg/dl (8.4-10.2); CARBON DIOXIDE 20 mmol/L (21-31); CHLORIDE 106 mmol/L (97-110); CREATININE 1.47 mg/dl (0.44-1.00); GLUCOSE 108 mg/dl (70-220); POTASSIUM 4.8 mmol/L (3.5-5.1); SODIUM 134 mmol/L (135-144)
[2019-04-26] MEDS: ERTAPENEM SODIUM 0.5 GM in SOD CHLORIDE 0.9% 100 ML IVPB (13:21)
[2019-04-26] MEDS: ATORVASTATIN 10 MG TAB PO (20:40)
[2019-04-27] MEDS: ACCU-CHEK XX (02:00)
[2019-04-27 05:12] LABS: ADD MAN DIFF? NO
[2019-04-27 05:16] LABS: BASOPHILS % 0.4 % (0.0-2.0); EOSINOPHILS # 0.3 10^3/ul (0.0-0.5); EOSINOPHILS % 4.3 % (0.0-7.0); HEMATOCRIT 24.5 % (37.0-47.0); HEMOGLOBIN 7.6 g/dl (12.0-16.0); LYMPHOCYTES # 1.3 10^3/ul (0.8-2.9); LYMPHOCYTES % 19.1 % (15.0-51.0); MEAN CORPUSCULAR HEMOGLOBIN 27.5 pg (29.0-33.0); MEAN CORPUSCULAR VOLUME 88.8 fl (82.0-101.0); MEAN PLATELET VOLUME 9.3 fl (7.4-10.4); MONOCYTE # 0.8 10^3/ul (0.3-0.9); MONOCYTES % 11.7 % (0.0-11.0); NEUTROPHIL # 4.3 10^3/ul (1.6-7.5); NEUTROPHILS % 64.2 % (39.0-77.0); PLATELET COUNT 247 10^3/UL (140-415); RED BLOOD COUNT 2.76 10^6/ul (4.20-5.40); RED CELL DISTRIBUTION WIDTH 13.3 % (11.5-14.5)
[2019-04-27 05:16] LABS: WHITE BLOOD COUNT 6.7 10^3/ul (4.8-10.8)
[2019-04-27 05:26] LABS: LACTIC ACID 0.7 mmol/L (0.5-2.0)
[2019-04-27 05:27] LABS: ANION GAP 6 (5-13); BLOOD UREA NITROGEN 28 mg/dl (7-20); CALCIUM 7.9 mg/dl (8.4-10.2); CARBON DIOXIDE 23 mmol/L (21-31); CHLORIDE 107 mmol/L (97-110); CREATININE 1.52 mg/dl (0.44-1.00); GLUCOSE 70 mg/dl (70-220); POTASSIUM 5.1 mmol/L (3.5-5.1); SODIUM 136 mmol/L (135-144)
[2019-04-27 05:30] LABS: PHOSPHORUS 4.1 mg/dl (2.5-4.9)
[2019-04-27 05:30] LABS: MAGNESIUM 1.7 mg/dl (1.7-2.5)
[2019-04-27 05:48] LABS: PROCALCITONIN 0.22 ng/mL (0.00-0.10)
[2019-04-27] MEDS: INSULIN ASPART [NOVOLOG] 3 ML PEN SC ×4 (08:50→21:00)
[2019-04-27] MEDS: CHOLECALCIFEROL 1,000 UNIT TAB PO (08:51)
[2019-04-27] MEDS: PANTOPRAZOLE (EC) 40 MG TAB PO (08:52)
[2019-04-27] MEDS: GABAPENTIN 300 MG CAP PO ×3 (08:53→21:07)
[2019-04-27] MEDS: APIXABAN 5 MG TABLET PO ×2 (08:57→21:08)
[2019-04-27] MEDS: DAKINS 0.0125%(1/40) 473 ML SOLUTION TP (09:24)
[2019-04-27] MEDS: METOPROLOL 25 MG TAB PO (09:24)
[2019-04-27] MEDS: SOD CHLORIDE 0.9% 250 ML IV (11:03)
[2019-04-27] MEDS: ERTAPENEM SODIUM 0.5 GM in SOD CHLORIDE 0.9% 100 ML IVPB (13:53)
[2019-04-27 15:06] LABS: IMMEDIATE SPIN CROSSMATCH 1 1
[2019-04-27] MEDS: SOD CHLORIDE 0.9% 250 ML IV* (15:12)
[2019-04-27] MEDS ORDERED: morphine 2 MG INJ IV (16:00)
[2019-04-27] MEDS: ATORVASTATIN 10 MG TAB PO (21:07)
[2019-04-27] MEDS: ACETAMINOPHEN 325 MG TAB PO (23:06)
[2019-04-28] MEDS: ACCU-CHEK XX ×2 (02:00→21:40)
[2019-04-28 04:57] LABS: ADD MAN DIFF? NO
[2019-04-28 05:02] LABS: WHITE BLOOD COUNT 6.5 10^3/ul (4.8-10.8)
[2019-04-28 05:02] LABS: BASOPHILS % 0.5 % (0.0-2.0); EOSINOPHILS # 0.3 10^3/ul (0.0-0.5); EOSINOPHILS % 3.8 % (0.0-7.0); HEMATOCRIT 29.1 % (37.0-47.0); LYMPHOCYTES # 1.6 10^3/ul (0.8-2.9); LYMPHOCYTES % 24.4 % (15.0-51.0); MEAN CORPUSCULAR HEMOGLOBIN 27.4 pg (29.0-33.0); MEAN CORPUSCULAR HGB CONC 30.9 g/dl (32.0-37.0); MEAN CORPUSCULAR VOLUME 88.7 fl (82.0-101.0); MONOCYTE # 0.9 10^3/ul (0.3-0.9); MONOCYTES % 13.2 % (0.0-11.0); NEUTROPHIL # 3.8 10^3/ul (1.6-7.5); NEUTROPHILS % 57.6 % (39.0-77.0); PLATELET COUNT 257 10^3/UL (140-415); RED BLOOD COUNT 3.28 10^6/ul (4.20-5.40); RED CELL DISTRIBUTION WIDTH 13.9 % (11.5-14.5)
[2019-04-28 05:21] LABS: ANION GAP 5 (5-13); BLOOD UREA NITROGEN 31 mg/dl (7-20); CARBON DIOXIDE 23 mmol/L (21-31); CHLORIDE 106 mmol/L (97-110); GLUCOSE 88 mg/dl (70-220); POTASSIUM 5.4 mmol/L (3.5-5.1); SODIUM 134 mmol/L (135-144)
[2019-04-28] MEDS: INSULIN ASPART [NOVOLOG] 3 ML PEN SC ×4 (07:50→21:00)
[2019-04-28] MEDS: GABAPENTIN 300 MG CAP PO ×3 (08:36→20:37)
[2019-04-28] MEDS: CHOLECALCIFEROL 1,000 UNIT TAB PO (08:37)
[2019-04-28] MEDS: APIXABAN 5 MG TABLET PO ×2 (08:37→20:38)
[2019-04-28] MEDS: PANTOPRAZOLE (EC) 40 MG TAB PO (08:37)
[2019-04-28] MEDS: DAKINS 0.0125%(1/40) 473 ML SOLUTION TP (08:39)
[2019-04-28] MEDS: ERTAPENEM SODIUM 0.5 GM in SOD CHLORIDE 0.9% 100 ML IVPB (13:49)
[2019-04-28] MEDS: SODIUM POLYSTYRENE 15 GM KIT (POWDER + SORBITOL) PO (14:19)
[2019-04-28] MEDS: ALTEPLASE (CATHFLO) 2 MG INJ CATHETER (15:09)
[2019-04-28] MEDS: ACETAMINOPHEN 325 MG TAB PO ×2 (15:57→22:17)
[2019-04-28] MEDS: ATORVASTATIN 10 MG TAB PO (20:37)
[2019-04-29 05:21] LABS: ADD MAN DIFF? NO
[2019-04-29 05:27] LABS: BASOPHILS % 0.3 % (0.0-2.0); EOSINOPHILS # 0.3 10^3/ul (0.0-0.5); EOSINOPHILS % 5.3 % (0.0-7.0); HEMATOCRIT 29.5 % (37.0-47.0); HEMOGLOBIN 9.1 g/dl (12.0-16.0); LYMPHOCYTES # 1.5 10^3/ul (0.8-2.9); LYMPHOCYTES % 23.9 % (15.0-51.0); MEAN CORPUSCULAR HEMOGLOBIN 27.3 pg (29.0-33.0); MEAN CORPUSCULAR HGB CONC 30.8 g/dl (32.0-37.0); MEAN CORPUSCULAR VOLUME 88.6 fl (82.0-101.0); MEAN PLATELET VOLUME 9.2 fl (7.4-10.4); MONOCYTE # 0.8 10^3/ul (0.3-0.9); MONOCYTES % 13.1 % (0.0-11.0); NEUTROPHIL # 3.5 10^3/ul (1.6-7.5); NEUTROPHILS % 57.1 % (39.0-77.0); PLATELET COUNT 277 10^3/UL (140-415); RED BLOOD COUNT 3.33 10^6/ul (4.20-5.40); RED CELL DISTRIBUTION WIDTH 13.8 % (11.5-14.5)
[2019-04-29 05:27] LABS: WHITE BLOOD COUNT 6.2 10^3/ul (4.8-10.8)
[2019-04-29 05:50] LABS: ANION GAP 6 (5-13); BLOOD UREA NITROGEN 32 mg/dl (7-20); CALCIUM 7.6 mg/dl (8.4-10.2); CARBON DIOXIDE 24 mmol/L (21-31); CHLORIDE 106 mmol/L (97-110); CREATININE 1.56 mg/dl (0.44-1.00); GLUCOSE 86 mg/dl (70-220); POTASSIUM 5.1 mmol/L (3.5-5.1); SODIUM 136 mmol/L (135-144)
[2019-04-29 05:54] LABS: PHOSPHORUS 4.7 mg/dl (2.5-4.9)
[2019-04-29 05:54] LABS: MAGNESIUM 1.7 mg/dl (1.7-2.5)
[2019-04-29] MEDS: INSULIN ASPART [NOVOLOG] 3 ML PEN SC ×4 (07:50→21:00)
[2019-04-29] MEDS: GABAPENTIN 300 MG CAP PO ×3 (08:25→21:23)
[2019-04-29] MEDS: DAKINS 0.0125%(1/40) 473 ML SOLUTION TP (08:25)
[2019-04-29] MEDS: APIXABAN 5 MG TABLET PO ×2 (08:25→21:23)
[2019-04-29] MEDS: PANTOPRAZOLE (EC) 40 MG TAB PO (08:25)
[2019-04-29] MEDS: CHOLECALCIFEROL 1,000 UNIT TAB PO (08:25)
[2019-04-29] MEDS: CALCIUM GLUCONATE 10% 1 GM in DEXTROSE 5% 100 ML IVPB (13:06)
[2019-04-29] MEDS: ERTAPENEM SODIUM 0.5 GM in SOD CHLORIDE 0.9% 100 ML IVPB (14:23)
[2019-04-29] MEDS: ATORVASTATIN 10 MG TAB PO (21:23)
[2019-04-30] MEDS: ACCU-CHEK XX (02:00)
[2019-04-30 05:18] LABS: ADD MAN DIFF? NO
[2019-04-30 05:26] LABS: WHITE BLOOD COUNT 7.4 10^3/ul (4.8-10.8)
[2019-04-30 05:26] LABS: BASOPHILS % 0.5 % (0.0-2.0); EOSINOPHILS # 0.4 10^3/ul (0.0-0.5); EOSINOPHILS % 5.1 % (0.0-7.0); HEMATOCRIT 28.9 % (37.0-47.0); LYMPHOCYTES # 1.4 10^3/ul (0.8-2.9); LYMPHOCYTES % 18.2 % (15.0-51.0); MEAN CORPUSCULAR HGB CONC 31.1 g/dl (32.0-37.0); MEAN CORPUSCULAR VOLUME 86.8 fl (82.0-101.0); MEAN PLATELET VOLUME 9.1 fl (7.4-10.4); MONOCYTE # 0.9 10^3/ul (0.3-0.9); NEUTROPHIL # 4.7 10^3/ul (1.6-7.5); NEUTROPHILS % 63.9 % (39.0-77.0); PLATELET COUNT 321 10^3/UL (140-415); RED BLOOD COUNT 3.33 10^6/ul (4.20-5.40); RED CELL DISTRIBUTION WIDTH 13.4 % (11.5-14.5)
[2019-04-30 06:11] LABS: BLOOD UREA NITROGEN 30 mg/dl (7-20); CALCIUM 8.4 mg/dl (8.4-10.2); CARBON DIOXIDE 26 mmol/L (21-31); CREATININE 1.42 mg/dl (0.44-1.00); GLUCOSE 100 mg/dl (70-220); SODIUM 139 mmol/L (135-144)
[2019-04-30 06:27] LABS: ANION GAP 5 (5-13); CHLORIDE 108 mmol/L (97-110)
[2019-04-30] MEDS: INSULIN ASPART [NOVOLOG] 3 ML PEN SC ×3 (09:09→17:55)
[2019-04-30] MEDS: APIXABAN 5 MG TABLET PO (09:11)
[2019-04-30] MEDS: CHOLECALCIFEROL 1,000 UNIT TAB PO (09:11)
[2019-04-30] MEDS: PANTOPRAZOLE (EC) 40 MG TAB PO (09:11)
[2019-04-30] MEDS: GABAPENTIN 300 MG CAP PO ×2 (09:11→12:43)
[2019-04-30] MEDS: DAKINS 0.0125%(1/40) 473 ML SOLUTION TP (09:12)
[2019-04-30] MEDS: ERTAPENEM SODIUM 0.5 GM in SOD CHLORIDE 0.9% 100 ML IVPB (13:54)
== END 2019-04-30 18:45 | DRG 253 ==
LOC: REC 06:06 → TEL 04-24 00:28 → MS1 04-26 19:00 → TEL 04-23 23:37 → ICU 14:42
PROC: 04CK0ZZ Extirpation of Matter from Right Femoral Artery, Open Approach (ICD-10-PCS; principal; 2019-04-22 07:58)
DX: E11.52 Type 2 diabetes mellitus with diabetic peripheral angiopathy with gangrene (principal); M86.8X7 Other osteomyelitis, ankle and foot; F05 Delirium due to known physiological condition; R44.3 Hallucinations, unspecified; E11.69 Type 2 diabetes mellitus with other specified complication; E11.22 Type 2 diabetes mellitus with diabetic chronic kidney disease; I12.9 Hypertensive chronic kidney disease with stage 1 through stage 4 chronic kidney disease, or unspecified chronic kidney disease; N18.9 Chronic kidney disease, unspecified; I48.91 Unspecified atrial fibrillation; E11.621 Type 2 diabetes mellitus with foot ulcer; L97.519 Non-pressure chronic ulcer of other part of right foot with unspecified severity; I25.10 Atherosclerotic heart disease of native coronary artery without angina pectoris; D63.8 Anemia in other chronic diseases classified elsewhere; E11.42 Type 2 diabetes mellitus with diabetic polyneuropathy; I08.3 Combined rheumatic disorders of mitral, aortic and tricuspid valves; Z79.82 Long term (current) use of aspirin; T36.8X5A Adverse effect of other systemic antibiotics, initial encounter; Y92.230 Patient room in hospital as the place of occurrence of the external cause
CPT/HCPCS: 36430; 71045; 80048; 80053; 80061; 80307; 81001; 82962; 83036; 83605; 83735; 84100; 84145; 84439; 84443; 85025; 85610; 85651; 85730; 86140; 86850; 86900; 86901; 86920; 87040-91; 87081; 87086; 88304; 88305; 88341; 88342; 97110; 97163; 97165; 97530; 97535

== ENCOUNTER 2019-05-13 15:44 | Inpatient (IN) | payer OTHER ==
[2019-05-13 18:45] LABS: ADD MAN DIFF? NO
[2019-05-13 18:48] LABS: WHITE BLOOD COUNT 9.5 10^3/ul (4.8-10.8)
[2019-05-13 18:48] LABS: BASOPHIL # 0.1 10^3/ul (0.0-0.1); BASOPHILS % 0.8 % (0.0-2.0); EOSINOPHILS # 0.3 10^3/ul (0.0-0.5); HEMATOCRIT 32.9 % (37.0-47.0); HEMOGLOBIN 9.8 g/dl (12.0-16.0); LYMPHOCYTES # 1.7 10^3/ul (0.8-2.9); LYMPHOCYTES % 17.4 % (15.0-51.0); MEAN CORPUSCULAR HEMOGLOBIN 27.4 pg (29.0-33.0); MEAN CORPUSCULAR HGB CONC 29.8 g/dl (32.0-37.0); MEAN CORPUSCULAR VOLUME 91.9 fl (82.0-101.0); MEAN PLATELET VOLUME 9.9 fl (7.4-10.4); MONOCYTE # 0.7 10^3/ul (0.3-0.9); MONOCYTES % 7.5 % (0.0-11.0); NEUTROPHIL # 6.8 10^3/ul (1.6-7.5); PLATELET COUNT 383 10^3/UL (140-415); RED BLOOD COUNT 3.58 10^6/ul (4.20-5.40); RED CELL DISTRIBUTION WIDTH 13.5 % (11.5-14.5)
[2019-05-13 19:08] LABS: INR 1.09; PROTIME 14.2 Sec (11.9-14.9); PT RATIO 1.1
[2019-05-13 19:11] LABS: PARTIAL THROMBOPLASTIN TIME 32.7 Sec (23.0-35.0)
[2019-05-13 19:16] LABS: ALANINE AMINOTRANSFERASE 28 IU/L (13-69); ALBUMIN 3.1 g/dl (3.3-4.9); ALBUMIN/GLOBULIN RATIO 0.86; ALKALINE PHOSPHATASE 129 IU/L (42-121); AMYLASE 151 U/L (11-123); ANION GAP 7 (5-13); ASPARTATE AMINO TRANSFERASE 34 IU/L (15-46); BILIRUBIN,INDIRECT 0.3 mg/dl (0-1.1); BILIRUBIN,TOTAL 0.3 mg/dl (0.2-1.3); BLOOD UREA NITROGEN 33 mg/dl (7-20); CALCIUM 8.5 mg/dl (8.4-10.2); CARBON DIOXIDE 25 mmol/L (21-31); CHLORIDE 105 mmol/L (97-110); CREATININE 1.37 mg/dl (0.44-1.00); GLUCOSE 224 mg/dl (70-220); LIPASE 166 U/L (23-300); POTASSIUM 4.7 mmol/L (3.5-5.1); SODIUM 137 mmol/L (135-144); TOTAL PROTEIN 6.7 g/dl (6.1-8.1)
[2019-05-13 19:24] LABS: TROPONIN-I < 0.012 ng/ml (0.000-0.120)
[2019-05-13] MEDS ORDERED: ONDANSETRON 4 MG INJ IV (21:00)
[2019-05-13] MEDS: ERTAPENEM SODIUM 1 GM in SOD CHLORIDE 0.9% 100 ML IVPB (21:15)
[2019-05-13] MEDS ORDERED: ACETAMINOPHEN 325 MG TAB PO (23:00)
[2019-05-13] MEDS ORDERED: morphine 2 MG INJ IV (23:00)
[2019-05-14 05:08] LABS: ADD MAN DIFF? NO
[2019-05-14 05:25] LABS: WHITE BLOOD COUNT 7.5 10^3/ul (4.8-10.8)
[2019-05-14 05:25] LABS: BASOPHIL # 0.1 10^3/ul (0.0-0.1); BASOPHILS % 0.8 % (0.0-2.0); EOSINOPHILS # 0.4 10^3/ul (0.0-0.5); EOSINOPHILS % 5.3 % (0.0-7.0); HEMATOCRIT 29.8 % (37.0-47.0); HEMOGLOBIN 8.9 g/dl (12.0-16.0); LYMPHOCYTES # 1.5 10^3/ul (0.8-2.9); LYMPHOCYTES % 19.8 % (15.0-51.0); MEAN CORPUSCULAR HEMOGLOBIN 27.5 pg (29.0-33.0); MEAN CORPUSCULAR HGB CONC 29.9 g/dl (32.0-37.0); MONOCYTE # 0.6 10^3/ul (0.3-0.9); MONOCYTES % 8.6 % (0.0-11.0); NEUTROPHIL # 4.9 10^3/ul (1.6-7.5); NEUTROPHILS % 65.2 % (39.0-77.0); PLATELET COUNT 329 10^3/UL (140-415); RED BLOOD COUNT 3.24 10^6/ul (4.20-5.40); RED CELL DISTRIBUTION WIDTH 13.6 % (11.5-14.5)
[2019-05-14 05:31] LABS: HEMOGLOBIN A1C 6.5 % (0-5.9)
[2019-05-14 05:46] LABS: ANION GAP 4 (5-13); BLOOD UREA NITROGEN 32 mg/dl (7-20); CALCIUM 8.3 mg/dl (8.4-10.2); CARBON DIOXIDE 31 mmol/L (21-31); CHLORIDE 106 mmol/L (97-110); CHOL/HDL RATIO 3.8 RATIO; CHOLESTEROL 111 mg/dl (100-200); CREATININE 1.21 mg/dl (0.44-1.00); GLUCOSE 120 mg/dl (70-220); HDL CHOLESTEROL 29 mg/dl (33-92); LDL CHOLESTEROL,CALCULATED 64 mg/dl; POTASSIUM 4.7 mmol/L (3.5-5.1); SODIUM 141 mmol/L (135-144); TRIGLYCERIDES 92 mg/dl (0-149)
[2019-05-14] MEDS: INSULIN ASPART [NOVOLOG] 3 ML PEN SC ×4 (08:00→20:55)
[2019-05-14] MEDS: METOPROLOL 25 MG TAB PO ×3 (09:00→20:56)
[2019-05-14] MEDS: ASPIRIN 81 MG TAB PO (09:50)
[2019-05-14] MEDS: ACETAMINOPHEN 325 MG TAB PO (09:50)
[2019-05-14] MEDS ORDERED: DIGOXIN 500 MCG INJ IV ×2 (11:00→13:00)
[2019-05-14] MEDS ORDERED: GLUCOSE GEL 15 GRAM TUBE PO ×2 (11:00)
[2019-05-14] MEDS ORDERED: DEXTROSE 50% 50 ML SYRINGE IV ×2 (11:00)
[2019-05-14] MEDS ORDERED: GLUCAGON 1 MG INJ IM (11:00)
[2019-05-14] MEDS ORDERED: GLUCOSE GEL 15 GRAM TUBE BUCCAL (11:00)
[2019-05-14] MEDS: SOD CHLORIDE 0.9% 500 ML IV ×2 (11:16→11:17)
[2019-05-14] MEDS ORDERED: LEVOFLOXACIN 500 MG TAB PO (11:30)
[2019-05-14] MEDS: SOD CHLORIDE 0.9% 1,000 ML IV (12:20)
[2019-05-14 12:51] LABS: HEMOGLOBIN A1C 6.5 % (0-5.9)
[2019-05-14 12:53] LABS: C-REACTIVE PROTEIN 2.7 mg/dl (0.0-0.9)
[2019-05-14] MEDS ORDERED: HYDROCODONE/APAP (5/325) TAB PO (15:30)
[2019-05-14] MEDS ORDERED: ACETAMINOPHEN 500 MG TAB PO (15:30)
[2019-05-14] MEDS: ERTAPENEM SODIUM 1 GM in SOD CHLORIDE 0.9% 100 ML IVPB (15:33)
[2019-05-14] MEDS ORDERED: MECLIZINE 25 MG TAB PO (16:00)
[2019-05-14 16:09] LABS: ADD UMIC YES; UR ASCORBIC ACID NEGATIVE (NEGATIVE); UR BACTERIA FEW /HPF (NONE SEEN); UR BILIRUBIN (Dip) NEGATIVE (NEGATIVE); UR BLOOD (Dip) NEGATIVE (NEGATIVE); UR BUDDING YEAST FEW /HPF (NONE SEEN); UR CLARITY CLEAR (CLEAR); UR COLOR YELLOW (YELLOW); UR GLUCOSE (Dip) 1+ mg/dL (NEGATIVE); UR KETONES (Dip) NEGATIVE (NEGATIVE); UR LEUKOCYTE ESTERASE (Dip) NEGATIVE Leu/ul (NEGATIVE); UR NITRITE (Dip) NEGATIVE (NEGATIVE); UR RBC 3 /HPF (0-5); UR SPECIFIC GRAVITY (Dip) 1.014 (1.003-1.030); UR SQUAMOUS EPITHELIAL CELL FEW /HPF (FEW); UR TOTAL PROTEIN (Dip) 3+ mg/dl (NEGATIVE); UR UROBILINOGEN (Dip) NEGATIVE (NEGATIVE); UR WBC 3 /HPF (0-5)
[2019-05-14 17:00] LABS: IRON 36 ug/dl (35-150)
[2019-05-14 17:09] LABS: % IRON SATURATION 15 % SAT (22-52); TOTAL IRON BINDING CAPACITY 243 ug/dl (241-421)
[2019-05-14] MEDS: LACTATED RINGER'S 500 ML IV (17:44)
[2019-05-14 18:14] LABS: PROCALCITONIN 0.07 ng/mL (0.00-0.10)
[2019-05-14] MEDS: DIGOXIN 500 MCG INJ IV (19:00)
[2019-05-14] MEDS: GABAPENTIN 300 MG CAP PO (20:57)
[2019-05-14] MEDS: ATORVASTATIN 20 MG TAB PO (20:57)
[2019-05-15] MEDS: SOD CHLORIDE 0.9% 1,000 ML IV ×2 (01:20→08:20)
[2019-05-15 05:56] LABS: ADD MAN DIFF? NO
[2019-05-15 06:03] LABS: WHITE BLOOD COUNT 7.5 10^3/ul (4.8-10.8)
[2019-05-15 06:03] LABS: BASOPHIL # 0.1 10^3/ul (0.0-0.1); BASOPHILS % 0.9 % (0.0-2.0); EOSINOPHILS # 0.5 10^3/ul (0.0-0.5); EOSINOPHILS % 6.4 % (0.0-7.0); HEMOGLOBIN 9.7 g/dl (12.0-16.0); LYMPHOCYTES % 26.1 % (15.0-51.0); MEAN CORPUSCULAR HEMOGLOBIN 27.3 pg (29.0-33.0); MEAN CORPUSCULAR HGB CONC 29.4 g/dl (32.0-37.0); MEAN PLATELET VOLUME 9.9 fl (7.4-10.4); MONOCYTE # 0.7 10^3/ul (0.3-0.9); MONOCYTES % 9.3 % (0.0-11.0); NEUTROPHIL # 4.3 10^3/ul (1.6-7.5); PLATELET COUNT 388 10^3/UL (140-415); RED BLOOD COUNT 3.55 10^6/ul (4.20-5.40); RED CELL DISTRIBUTION WIDTH 13.9 % (11.5-14.5)
[2019-05-15] MEDS: PANTOPRAZOLE (EC) 40 MG TAB PO (06:25)
[2019-05-15 06:48] LABS: ANION GAP 5 (5-13); BLOOD UREA NITROGEN 30 mg/dl (7-20); CALCIUM 8.4 mg/dl (8.4-10.2); CARBON DIOXIDE 30 mmol/L (21-31); CHLORIDE 107 mmol/L (97-110); CREATININE 1.22 mg/dl (0.44-1.00); GLUCOSE 93 mg/dl (70-220); POTASSIUM 5.4 mmol/L (3.5-5.1); SODIUM 142 mmol/L (135-144)
[2019-05-15 06:49] LABS: CHOLESTEROL 115 mg/dl (100-200)
[2019-05-15 06:49] LABS: CHOL/HDL RATIO 3.8 RATIO; HDL CHOLESTEROL 30 mg/dl (33-92); LDL CHOLESTEROL,CALCULATED 61 mg/dl; TRIGLYCERIDES 122 mg/dl (0-149)
[2019-05-15 07:18] LABS: ERYTHROCYTE SEDIMENTATION RATE 80 mm/Hr (0-30)
[2019-05-15] MEDS: INSULIN ASPART [NOVOLOG] 3 ML PEN SC ×4 (07:33→20:41)
[2019-05-15] MEDS: CHOLECALCIFEROL 1,000 UNIT TAB PO (08:13)
[2019-05-15] MEDS: GABAPENTIN 300 MG CAP PO ×3 (08:13→20:42)
[2019-05-15] MEDS: ASPIRIN 81 MG TAB PO (08:13)
[2019-05-15] MEDS: METOPROLOL 25 MG TAB PO ×2 (08:14→20:42)
[2019-05-15] MEDS ORDERED: VANCOMYCIN IV PER PHARMACY XX (11:30)
[2019-05-15 12:01] LABS: CHOLESTEROL 110 mg/dl (100-200)
[2019-05-15 12:01] LABS: CHOL/HDL RATIO 3.4 RATIO; HDL CHOLESTEROL 32 mg/dl (33-92); LDL CHOLESTEROL,CALCULATED 53 mg/dl; TRIGLYCERIDES 126 mg/dl (0-149)
[2019-05-15] MEDS: MEROPENEM 1 GM/50ML(PMX) 50 ML IVPB ×2 (12:38→20:41)
[2019-05-15] MEDS: NA POLYST SULFON 15 GM/60 ML BTL PO (12:57)
[2019-05-15] MEDS: VANCOMYCIN 1.5 GM/NS 250 ML 250 ML IVPB (14:09)
[2019-05-15] MEDS: ATORVASTATIN 20 MG TAB PO (20:42)
[2019-05-16] MEDS: SOD CHLORIDE 0.9% 1,000 ML IV ×3 (04:00→20:25)
[2019-05-16 05:44] LABS: ADD MAN DIFF? NO
[2019-05-16 05:50] LABS: WHITE BLOOD COUNT 7.9 10^3/ul (4.8-10.8)
[2019-05-16 05:50] LABS: BASOPHIL # 0.1 10^3/ul (0.0-0.1); BASOPHILS % 0.9 % (0.0-2.0); EOSINOPHILS # 0.3 10^3/ul (0.0-0.5); EOSINOPHILS % 4.1 % (0.0-7.0); HEMATOCRIT 30.6 % (37.0-47.0); LYMPHOCYTES # 1.5 10^3/ul (0.8-2.9); LYMPHOCYTES % 19.2 % (15.0-51.0); MEAN CORPUSCULAR HGB CONC 29.4 g/dl (32.0-37.0); MEAN CORPUSCULAR VOLUME 91.9 fl (82.0-101.0); MEAN PLATELET VOLUME 9.8 fl (7.4-10.4); MONOCYTE # 0.7 10^3/ul (0.3-0.9); MONOCYTES % 8.2 % (0.0-11.0); NEUTROPHIL # 5.3 10^3/ul (1.6-7.5); NEUTROPHILS % 67.2 % (39.0-77.0); PLATELET COUNT 373 10^3/UL (140-415); RED BLOOD COUNT 3.33 10^6/ul (4.20-5.40); RED CELL DISTRIBUTION WIDTH 13.9 % (11.5-14.5)
[2019-05-16] MEDS: PANTOPRAZOLE (EC) 40 MG TAB PO (05:58)
[2019-05-16 06:04] LABS: ALANINE AMINOTRANSFERASE 21 IU/L (13-69); ALBUMIN 2.8 g/dl (3.3-4.9); ALBUMIN/GLOBULIN RATIO 0.84; ALKALINE PHOSPHATASE 107 IU/L (42-121); ANION GAP 6 (5-13); ASPARTATE AMINO TRANSFERASE 30 IU/L (15-46); BILIRUBIN,INDIRECT 0.3 mg/dl (0-1.1); BILIRUBIN,TOTAL 0.3 mg/dl (0.2-1.3); BLOOD UREA NITROGEN 29 mg/dl (7-20); CALCIUM 8.1 mg/dl (8.4-10.2); CARBON DIOXIDE 28 mmol/L (21-31); CHLORIDE 107 mmol/L (97-110); CREATININE 1.12 mg/dl (0.44-1.00); GLUCOSE 103 mg/dl (70-220); POTASSIUM 4.7 mmol/L (3.5-5.1); SODIUM 141 mmol/L (135-144); TOTAL PROTEIN 6.1 g/dl (6.1-8.1)
[2019-05-16] MEDS: INSULIN ASPART [NOVOLOG] 3 ML PEN SC ×4 (08:00→20:22)
[2019-05-16] MEDS: MEROPENEM 1 GM/50ML(PMX) 50 ML IVPB ×2 (08:47→20:14)
[2019-05-16] MEDS: GABAPENTIN 300 MG CAP PO ×3 (08:48→20:15)
[2019-05-16] MEDS: METOPROLOL 25 MG TAB PO ×2 (08:54→20:15)
[2019-05-16] MEDS: ASPIRIN 81 MG TAB PO (08:56)
[2019-05-16] MEDS: CHOLECALCIFEROL 1,000 UNIT TAB PO (08:56)
[2019-05-16] MEDS ORDERED: PROPOFOL 40 ML (11:59)
[2019-05-16] MEDS ORDERED: FENTAnyl 50 MCG/ML VIAL (11:59)
[2019-05-16] MEDS ORDERED: LIDOCAINE 2% (SDV) 5 ML INJ (11:59)
[2019-05-16] MEDS: BUPIVACAINE 0.5% (SDV) 30 ML INJ (12:35)
[2019-05-16] MEDS: LIDOCAINE 1% (MPF) 30 ML INJ (12:37)
[2019-05-16] MEDS: POLYMYXIN/BACITRACIN 1L IRRIG (12:38)
[2019-05-16] MEDS ORDERED: PHENYLephrine (100 MCG/ML) 10ML SYG (12:50)
[2019-05-16] MEDS ORDERED: DIPHENHYDRAMINE 50 MG INJ IV (13:30)
[2019-05-16] MEDS ORDERED: OXYCODONE/ACETAMINOPHEN (5/325) TAB PO (13:30)
[2019-05-16] MEDS ORDERED: LABETALOL HCL 20MG INJ IV (13:30)
[2019-05-16] MEDS ORDERED: FENTAnyl 50 MCG/ML VIAL IV (13:30)
[2019-05-16] MEDS ORDERED: ONDANSETRON 4 MG INJ IV (13:30)
[2019-05-16] MEDS ORDERED: EPHEDrine 25 MG/5 ML SYG IV (13:30)
[2019-05-16] MEDS ORDERED: HYDROmorphONE 1 MG/5 ML IV SYRINGE IV (13:30)
[2019-05-16] MEDS ORDERED: morphine 2 MG INJ IV (13:30)
[2019-05-16] MEDS ORDERED: hydrALAzine 20 MG INJ IV (13:30)
[2019-05-16] MEDS: ALBUTEROL 0.083% (NEB) 2.5 MG/3 ML AMP HHN (13:49)
[2019-05-16] MEDS: VANCOMYCIN 750 MG (PMX) 250 ML IVPB (17:25)
[2019-05-16] MEDS: ATORVASTATIN 20 MG TAB PO (20:15)
[2019-05-17] MEDS: PANTOPRAZOLE (EC) 40 MG TAB PO (05:53)
[2019-05-17] MEDS: HYDROCODONE/APAP (5/325) TAB PO (05:54)
[2019-05-17] MEDS: SOD CHLORIDE 0.9% 1,000 ML IV (06:40)
[2019-05-17] MEDS: INSULIN ASPART [NOVOLOG] 3 ML PEN SC ×4 (07:52→20:13)
[2019-05-17] MEDS: MEROPENEM 1 GM/50ML(PMX) 50 ML IVPB ×2 (08:35→20:07)
[2019-05-17] MEDS: METOPROLOL 25 MG TAB PO ×2 (08:36→20:12)
[2019-05-17] MEDS: ASPIRIN 81 MG TAB PO (08:36)
[2019-05-17] MEDS: CHOLECALCIFEROL 1,000 UNIT TAB PO (08:36)
[2019-05-17] MEDS: GABAPENTIN 300 MG CAP PO ×3 (08:37→20:12)
[2019-05-17] MEDS ORDERED: VANCOMYCIN 1.25 GM/NS 250 ML 250 ML IVPB (12:00)
[2019-05-17] MEDS: VANCOMYCIN 750 MG (PMX) 250 ML IVPB (17:55)
[2019-05-17] MEDS: ATORVASTATIN 20 MG TAB PO (20:12)
[2019-05-18] MEDS: PANTOPRAZOLE (EC) 40 MG TAB PO (05:21)
[2019-05-18 05:32] LABS: ADD MAN DIFF? NO
[2019-05-18 05:34] LABS: BASOPHILS % 0.5 % (0.0-2.0); EOSINOPHILS # 0.5 10^3/ul (0.0-0.5); EOSINOPHILS % 5.8 % (0.0-7.0); HEMOGLOBIN 8.7 g/dl (12.0-16.0); LYMPHOCYTES # 1.8 10^3/ul (0.8-2.9); LYMPHOCYTES % 22.4 % (15.0-51.0); MEAN CORPUSCULAR HEMOGLOBIN 27.1 pg (29.0-33.0); MEAN CORPUSCULAR VOLUME 90.3 fl (82.0-101.0); MEAN PLATELET VOLUME 9.8 fl (7.4-10.4); MONOCYTE # 0.7 10^3/ul (0.3-0.9); MONOCYTES % 8.4 % (0.0-11.0); NEUTROPHILS % 62.6 % (39.0-77.0); PLATELET COUNT 342 10^3/UL (140-415); RED BLOOD COUNT 3.21 10^6/ul (4.20-5.40); RED CELL DISTRIBUTION WIDTH 14.3 % (11.5-14.5)
[2019-05-18 05:57] LABS: INR 1.14; PROTIME 14.7 Sec (11.9-14.9); PT RATIO 1.1
[2019-05-18 05:58] LABS: PARTIAL THROMBOPLASTIN TIME 34.5 Sec (23.0-35.0)
[2019-05-18 05:59] LABS: MAGNESIUM 1.4 mg/dl (1.7-2.5)
[2019-05-18 05:59] LABS: PHOSPHORUS 3.8 mg/dl (2.5-4.9)
[2019-05-18 06:04] LABS: ALANINE AMINOTRANSFERASE 20 IU/L (13-69); ALBUMIN 2.6 g/dl (3.3-4.9); ALBUMIN/GLOBULIN RATIO 0.81; ALKALINE PHOSPHATASE 108 IU/L (42-121); ANION GAP 6 (5-13); ASPARTATE AMINO TRANSFERASE 24 IU/L (15-46); BILIRUBIN,INDIRECT 0.3 mg/dl (0-1.1); BILIRUBIN,TOTAL 0.3 mg/dl (0.2-1.3); BLOOD UREA NITROGEN 30 mg/dl (7-20); CALCIUM 7.9 mg/dl (8.4-10.2); CARBON DIOXIDE 27 mmol/L (21-31); CHLORIDE 107 mmol/L (97-110); CREATININE 1.41 mg/dl (0.44-1.00); GLUCOSE 91 mg/dl (70-220); POTASSIUM 4.6 mmol/L (3.5-5.1); SODIUM 140 mmol/L (135-144); TOTAL PROTEIN 5.8 g/dl (6.1-8.1)
[2019-05-18] MEDS: INSULIN ASPART [NOVOLOG] 3 ML PEN SC ×4 (08:00→21:45)
[2019-05-18] MEDS: CHOLECALCIFEROL 1,000 UNIT TAB PO (08:57)
[2019-05-18] MEDS: ASPIRIN 81 MG TAB PO (08:57)
[2019-05-18] MEDS: METOPROLOL 25 MG TAB PO ×2 (08:58→20:38)
[2019-05-18] MEDS: GABAPENTIN 300 MG CAP PO ×2 (08:58→20:31)
[2019-05-18] MEDS: MEROPENEM 1 GM/50ML(PMX) 50 ML IVPB ×2 (09:35→20:35)
[2019-05-18] MEDS: HYDROCODONE/APAP (5/325) TAB PO ×2 (09:38→18:38)
[2019-05-18] MEDS: MAGNESIUM SULFATE 2 GM/50 ML 50 ML IVPB (15:30)
[2019-05-18] MEDS: ATORVASTATIN 20 MG TAB PO (20:31)
[2019-05-19] MEDS: PANTOPRAZOLE (EC) 40 MG TAB PO (05:46)
[2019-05-19 05:59] LABS: ADD MAN DIFF? NO
[2019-05-19 06:10] LABS: WHITE BLOOD COUNT 8.3 10^3/ul (4.8-10.8)
[2019-05-19 06:10] LABS: BASOPHIL # 0.1 10^3/ul (0.0-0.1); BASOPHILS % 0.7 % (0.0-2.0); EOSINOPHILS # 0.5 10^3/ul (0.0-0.5); EOSINOPHILS % 6.2 % (0.0-7.0); HEMATOCRIT 28.5 % (37.0-47.0); HEMOGLOBIN 8.4 g/dl (12.0-16.0); LYMPHOCYTES # 1.9 10^3/ul (0.8-2.9); LYMPHOCYTES % 23.1 % (15.0-51.0); MEAN CORPUSCULAR HEMOGLOBIN 27.3 pg (29.0-33.0); MEAN CORPUSCULAR HGB CONC 29.5 g/dl (32.0-37.0); MEAN CORPUSCULAR VOLUME 92.5 fl (82.0-101.0); MEAN PLATELET VOLUME 10.2 fl (7.4-10.4); MONOCYTE # 0.9 10^3/ul (0.3-0.9); MONOCYTES % 10.6 % (0.0-11.0); NEUTROPHIL # 4.9 10^3/ul (1.6-7.5); NEUTROPHILS % 58.9 % (39.0-77.0); PLATELET COUNT 339 10^3/UL (140-415); RED BLOOD COUNT 3.08 10^6/ul (4.20-5.40); RED CELL DISTRIBUTION WIDTH 14.6 % (11.5-14.5)
[2019-05-19 07:31] LABS: ANION GAP 5 (5-13); BLOOD UREA NITROGEN 38 mg/dl (7-20); CALCIUM 7.9 mg/dl (8.4-10.2); CARBON DIOXIDE 25 mmol/L (21-31); CHLORIDE 104 mmol/L (97-110); CREATININE 1.45 mg/dl (0.44-1.00); GLUCOSE 89 mg/dl (70-220); MAGNESIUM 1.9 mg/dl (1.7-2.5); POTASSIUM 5.4 mmol/L (3.5-5.1); SODIUM 134 mmol/L (135-144)
[2019-05-19] MEDS: INSULIN ASPART [NOVOLOG] 3 ML PEN SC ×4 (08:00→21:00)
[2019-05-19] MEDS: METOPROLOL 25 MG TAB PO ×2 (09:22→21:15)
[2019-05-19] MEDS: CHOLECALCIFEROL 1,000 UNIT TAB PO (09:22)
[2019-05-19] MEDS: ASPIRIN 81 MG TAB PO (09:22)
[2019-05-19] MEDS: MEROPENEM 1 GM/50ML(PMX) 50 ML IVPB ×2 (09:23→21:15)
[2019-05-19] MEDS: NA POLYST SULFON 15 GM/60 ML BTL PO (13:38)
[2019-05-19] MEDS: HYDROCODONE/APAP (5/325) TAB PO (17:10)
[2019-05-19] MEDS: ATORVASTATIN 20 MG TAB PO (21:15)
[2019-05-19] MEDS: APIXABAN 5 MG TABLET PO (21:15)
[2019-05-19] MEDS: GABAPENTIN 300 MG CAP PO (21:15)
[2019-05-20] MEDS: PANTOPRAZOLE (EC) 40 MG TAB PO (06:06)
[2019-05-20] MEDS: INSULIN ASPART [NOVOLOG] 3 ML PEN SC ×4 (08:00→21:19)
[2019-05-20 10:15] LABS: ANION GAP 5 (5-13); BLOOD UREA NITROGEN 38 mg/dl (7-20); CALCIUM 8.2 mg/dl (8.4-10.2); CARBON DIOXIDE 29 mmol/L (21-31); CHLORIDE 105 mmol/L (97-110); CREATININE 1.38 mg/dl (0.44-1.00); GLUCOSE 111 mg/dl (70-220); POTASSIUM 4.5 mmol/L (3.5-5.1); SODIUM 139 mmol/L (135-144)
[2019-05-20] MEDS: CHOLECALCIFEROL 1,000 UNIT TAB PO (10:48)
[2019-05-20] MEDS: MEROPENEM 1 GM/50ML(PMX) 50 ML IVPB ×2 (10:48→21:09)
[2019-05-20] MEDS: METOPROLOL 25 MG TAB PO ×2 (10:49→21:09)
[2019-05-20] MEDS: APIXABAN 5 MG TABLET PO ×2 (10:49→21:09)
[2019-05-20] MEDS: HYDROCODONE/APAP (5/325) TAB PO (16:39)
[2019-05-20] MEDS: GABAPENTIN 300 MG CAP PO (21:09)
[2019-05-20] MEDS: ATORVASTATIN 20 MG TAB PO (21:09)
[2019-05-21] MEDS: PANTOPRAZOLE (EC) 40 MG TAB PO (05:35)
[2019-05-21 06:25] LABS: ADD MAN DIFF? NO
[2019-05-21 06:37] LABS: BASOPHILS % 0.5 % (0.0-2.0); EOSINOPHILS # 0.3 10^3/ul (0.0-0.5); EOSINOPHILS % 3.2 % (0.0-7.0); HEMATOCRIT 28.4 % (37.0-47.0); HEMOGLOBIN 8.3 g/dl (12.0-16.0); LYMPHOCYTES # 1.5 10^3/ul (0.8-2.9); LYMPHOCYTES % 18.1 % (15.0-51.0); MEAN CORPUSCULAR HEMOGLOBIN 26.7 pg (29.0-33.0); MEAN CORPUSCULAR HGB CONC 29.2 g/dl (32.0-37.0); MEAN CORPUSCULAR VOLUME 91.3 fl (82.0-101.0); MONOCYTE # 0.7 10^3/ul (0.3-0.9); NEUTROPHIL # 5.9 10^3/ul (1.6-7.5); NEUTROPHILS % 69.8 % (39.0-77.0); PLATELET COUNT 375 10^3/UL (140-415); RED BLOOD COUNT 3.11 10^6/ul (4.20-5.40); RED CELL DISTRIBUTION WIDTH 14.6 % (11.5-14.5)
[2019-05-21 06:37] LABS: WHITE BLOOD COUNT 8.4 10^3/ul (4.8-10.8)
[2019-05-21 07:09] LABS: ANION GAP 3 (5-13); BLOOD UREA NITROGEN 48 mg/dl (7-20); CALCIUM 8.1 mg/dl (8.4-10.2); CARBON DIOXIDE 30 mmol/L (21-31); CHLORIDE 102 mmol/L (97-110); CREATININE 1.21 mg/dl (0.44-1.00); GLUCOSE 134 mg/dl (70-220); SODIUM 135 mmol/L (135-144)
[2019-05-21] MEDS: CHOLECALCIFEROL 1,000 UNIT TAB PO (08:38)
[2019-05-21] MEDS: APIXABAN 5 MG TABLET PO ×2 (08:38→21:01)
[2019-05-21] MEDS: METOPROLOL 25 MG TAB PO ×2 (08:38→21:01)
[2019-05-21] MEDS: INSULIN ASPART [NOVOLOG] 3 ML PEN SC ×4 (08:50→21:11)
[2019-05-21] MEDS: ATORVASTATIN 20 MG TAB PO (21:01)
[2019-05-21] MEDS: GABAPENTIN 300 MG CAP PO (21:01)
[2019-05-22] MEDS: PANTOPRAZOLE (EC) 40 MG TAB PO (05:55)
[2019-05-22] MEDS: INSULIN ASPART [NOVOLOG] 3 ML PEN SC ×4 (08:00→20:41)
[2019-05-22] MEDS: APIXABAN 5 MG TABLET PO ×2 (08:10→20:36)
[2019-05-22] MEDS: METOPROLOL 25 MG TAB PO ×2 (08:10→20:46)
[2019-05-22] MEDS: CHOLECALCIFEROL 1,000 UNIT TAB PO (08:10)
[2019-05-22] MEDS: GABAPENTIN 300 MG CAP PO (20:36)
[2019-05-22] MEDS: ATORVASTATIN 20 MG TAB PO (20:36)
[2019-05-23] MEDS: PANTOPRAZOLE (EC) 40 MG TAB PO (05:33)
[2019-05-23 05:49] LABS: ADD MAN DIFF? NO
[2019-05-23 05:58] LABS: BASOPHIL # 0.1 10^3/ul (0.0-0.1); BASOPHILS % 1.1 % (0.0-2.0); EOSINOPHILS # 0.6 10^3/ul (0.0-0.5); EOSINOPHILS % 7.8 % (0.0-7.0); HEMATOCRIT 27.1 % (37.0-47.0); LYMPHOCYTES # 2.2 10^3/ul (0.8-2.9); LYMPHOCYTES % 30.7 % (15.0-51.0); MEAN CORPUSCULAR HEMOGLOBIN 27.1 pg (29.0-33.0); MEAN CORPUSCULAR HGB CONC 29.5 g/dl (32.0-37.0); MEAN CORPUSCULAR VOLUME 91.9 fl (82.0-101.0); MEAN PLATELET VOLUME 9.9 fl (7.4-10.4); MONOCYTE # 0.8 10^3/ul (0.3-0.9); NEUTROPHIL # 3.5 10^3/ul (1.6-7.5); PLATELET COUNT 362 10^3/UL (140-415); RED BLOOD COUNT 2.95 10^6/ul (4.20-5.40); RED CELL DISTRIBUTION WIDTH 14.5 % (11.5-14.5)
[2019-05-23 05:58] LABS: WHITE BLOOD COUNT 7.2 10^3/ul (4.8-10.8)
[2019-05-23 06:33] LABS: ANION GAP 1 (5-13); BLOOD UREA NITROGEN 36 mg/dl (7-20); CALCIUM 8.4 mg/dl (8.4-10.2); CARBON DIOXIDE 33 mmol/L (21-31); CHLORIDE 102 mmol/L (97-110); CREATININE 1.18 mg/dl (0.44-1.00); GLUCOSE 93 mg/dl (70-220); SODIUM 136 mmol/L (135-144)
[2019-05-23 06:43] LABS: POTASSIUM 4.8 mmol/L (3.5-5.1)
[2019-05-23] MEDS: INSULIN ASPART [NOVOLOG] 3 ML PEN SC ×3 (08:00→17:39)
[2019-05-23] MEDS: CHOLECALCIFEROL 1,000 UNIT TAB PO (08:36)
[2019-05-23] MEDS: APIXABAN 5 MG TABLET PO (08:36)
[2019-05-23] MEDS: METOPROLOL 25 MG TAB PO (08:37)
== END 2019-05-23 20:35 | DRG 255 ==
LOC: 6WM 05-17 14:42 → E/R 15:44 → PP2 20:38
PROC: 0Y6T0Z0 Detachment at Right 3rd Toe, Complete, Open Approach (ICD-10-PCS; principal; 2019-05-16 12:11)
PROC: 0Y6V0Z0 Detachment at Right 4th Toe, Complete, Open Approach (ICD-10-PCS; 2019-05-16 12:11)
PROC: 0JBQ0ZZ Excision of Right Foot Subcutaneous Tissue and Fascia, Open Approach (ICD-10-PCS; 2019-05-16 12:11)
PROC: 0HRMXK3 Replacement of Right Foot Skin with Nonautologous Tissue Substitute, Full Thickness, External Approach (ICD-10-PCS; 2019-05-16 12:11)
DX: E11.52 Type 2 diabetes mellitus with diabetic peripheral angiopathy with gangrene (principal); N17.0 Acute kidney failure with tubular necrosis; L03.115 Cellulitis of right lower limb; M86.171 Other acute osteomyelitis, right ankle and foot; E11.69 Type 2 diabetes mellitus with other specified complication; E11.621 Type 2 diabetes mellitus with foot ulcer; B96.89 Other specified bacterial agents as the cause of diseases classified elsewhere; Z79.4 Long term (current) use of insulin; E11.22 Type 2 diabetes mellitus with diabetic chronic kidney disease; E11.65 Type 2 diabetes mellitus with hyperglycemia; N18.3 Chronic kidney disease, stage 3 (moderate); I48.2 Chronic atrial fibrillation; I95.9 Hypotension, unspecified; D63.1 Anemia in chronic kidney disease; E87.5 Hyperkalemia
CPT/HCPCS: 73630; 80048; 80053; 80061; 81001; 82150; 82728; 82962; 83036; 83540; 83605; 83690; 83735; 84100; 84145; 84484; 85025; 85610; 85651; 85730; 86140; 87040-91; 87070; 87081; 87086; 88305; 88311; 93005; 94664; 97163; 97530; 99285-25

== ENCOUNTER 2019-06-21 13:43 | Inpatient (IN) | payer OTHER ==
[2019-06-21 16:22] LABS: ADD MAN DIFF? NO
[2019-06-21 16:26] LABS: WHITE BLOOD COUNT 12.7 10^3/ul (4.8-10.8)
[2019-06-21 16:26] LABS: BASOPHIL # 0.1 10^3/ul (0.0-0.1); BASOPHILS % 0.6 % (0.0-2.0); EOSINOPHILS # 0.1 10^3/ul (0.0-0.5); HEMATOCRIT 32.5 % (37.0-47.0); HEMOGLOBIN 10.4 g/dl (12.0-16.0); LYMPHOCYTES # 2.1 10^3/ul (0.8-2.9); LYMPHOCYTES % 16.4 % (15.0-51.0); MEAN CORPUSCULAR HEMOGLOBIN 28.3 pg (29.0-33.0); MEAN CORPUSCULAR VOLUME 88.3 fl (82.0-101.0); MEAN PLATELET VOLUME 9.8 fl (7.4-10.4); MONOCYTE # 0.9 10^3/ul (0.3-0.9); MONOCYTES % 7.4 % (0.0-11.0); NEUTROPHIL # 9.4 10^3/ul (1.6-7.5); NEUTROPHILS % 73.9 % (39.0-77.0); PLATELET COUNT 399 10^3/UL (140-415); RED BLOOD COUNT 3.68 10^6/ul (4.20-5.40); RED CELL DISTRIBUTION WIDTH 14.1 % (11.5-14.5)
[2019-06-21] MEDS ORDERED: ACETAMINOPHEN 325 MG TAB PO (16:30)
[2019-06-21] MEDS ORDERED: ONDANSETRON 4 MG INJ IV ×2 (16:30→22:00)
[2019-06-21] MEDS: morphine 4 MG/ML VIAL IV (16:39)
[2019-06-21] MEDS: ONDANSETRON 4 MG INJ IV (16:39)
[2019-06-21] MEDS: VANCOMYCIN 1 GM (PMX) 250 ML IVPB (16:40)
[2019-06-21] MEDS: SODIUM CHLORIDE 0.9% 1L BAG IV* (16:40)
[2019-06-21 16:45] LABS: INR 1.39; PROTIME 17.2 Sec (11.9-14.9); PT RATIO 1.3
[2019-06-21 16:46] LABS: PARTIAL THROMBOPLASTIN TIME 39.8 Sec (23.0-35.0)
[2019-06-21 16:47] LABS: ALANINE AMINOTRANSFERASE 33 IU/L (13-69); ALBUMIN 3.1 g/dl (3.3-4.9); ALBUMIN/GLOBULIN RATIO 0.79; ALKALINE PHOSPHATASE 113 IU/L (42-121); ANION GAP 11 (5-13); ASPARTATE AMINO TRANSFERASE 27 IU/L (15-46); BILIRUBIN,TOTAL 0.4 mg/dl (0.2-1.3); BLOOD UREA NITROGEN 56 mg/dl (7-20); CALCIUM 8.9 mg/dl (8.4-10.2); CARBON DIOXIDE 22 mmol/L (21-31); CHLORIDE 96 mmol/L (97-110); GLUCOSE 369 mg/dl (70-220); POTASSIUM 4.1 mmol/L (3.5-5.1); SODIUM 129 mmol/L (135-144)
[2019-06-21 16:49] LABS: BILIRUBIN,INDIRECT 0.4 mg/dl (0-1.1)
[2019-06-21 17:07] LABS: TROPONIN-I 0.022 ng/ml (0.000-0.120)
[2019-06-21 18:43] LABS: ADD UMIC YES; UR ASCORBIC ACID NEGATIVE (NEGATIVE); UR BACTERIA MODERATE /HPF (NONE SEEN); UR BILIRUBIN (Dip) NEGATIVE (NEGATIVE); UR BLOOD (Dip) 1+ mg/dL (NEGATIVE); UR BUDDING YEAST MODERATE /HPF (NONE SEEN); UR CLARITY CLOUDY (CLEAR); UR COLOR YELLOW (YELLOW); UR GLUCOSE (Dip) 1+ mg/dL (NEGATIVE); UR KETONES (Dip) NEGATIVE (NEGATIVE); UR LEUKOCYTE ESTERASE (Dip) 3+ Leu/ul (NEGATIVE); UR MUCUS FEW /HPF (NONE SEEN); UR NITRITE (Dip) NEGATIVE (NEGATIVE); UR NONSQUAMOUS EPITHELIAL CELL 1 /HPF (NONE SEEN); UR RBC 6 /HPF (0-5); UR SPECIFIC GRAVITY (Dip) 1.008 (1.003-1.030); UR SQUAMOUS EPITHELIAL CELL MODERATE /HPF (FEW); UR TOTAL PROTEIN (Dip) 2+ mg/dl (NEGATIVE); UR UROBILINOGEN (Dip) NEGATIVE (NEGATIVE); UR WBC 120 /HPF (0-5)
[2019-06-21] MEDS: AZTREONAM 1 GM/NS (PMX) 50 ML IVPB (19:15)
[2019-06-21] MEDS ORDERED: DOCUSATE SODIUM 100 MG CAP PO (22:00)
[2019-06-21] MEDS ORDERED: ZOLPIDEM 5 MG TAB PO (22:00)
[2019-06-21] MEDS ORDERED: MECLIZINE 25 MG TAB PO (22:30)
[2019-06-21] MEDS: METOPROLOL 25 MG TAB PO (22:31)
[2019-06-21] MEDS: INSULIN ASPART [NOVOLOG] 3 ML PEN SC ×2 (22:47→23:03)
[2019-06-21] MEDS ORDERED: DEXTROSE 50% 50 ML SYRINGE IV (23:00)
[2019-06-21] MEDS ORDERED: GLUCAGON 1 MG INJ IM (23:00)
[2019-06-21] MEDS ORDERED: GLUCOSE GEL 15 GRAM TUBE PO ×2 (23:00)
[2019-06-21] MEDS ORDERED: GLUCOSE GEL 15 GRAM TUBE BUCCAL (23:00)
[2019-06-21 23:32] LABS: LACTIC ACID 1.1 mmol/L (0.5-2.0)
[2019-06-22] MEDS: ACCU-CHEK XX ×5 (02:00→21:58)
[2019-06-22 05:37] LABS: ADD MAN DIFF? NO
[2019-06-22 05:47] LABS: WHITE BLOOD COUNT 10.3 10^3/ul (4.8-10.8)
[2019-06-22 05:47] LABS: BASOPHIL # 0.1 10^3/ul (0.0-0.1); BASOPHILS % 0.8 % (0.0-2.0); EOSINOPHILS # 0.2 10^3/ul (0.0-0.5); EOSINOPHILS % 2.1 % (0.0-7.0); HEMATOCRIT 28.7 % (37.0-47.0); HEMOGLOBIN 9.1 g/dl (12.0-16.0); LYMPHOCYTES # 1.3 10^3/ul (0.8-2.9); LYMPHOCYTES % 12.8 % (15.0-51.0); MEAN CORPUSCULAR HEMOGLOBIN 28.5 pg (29.0-33.0); MEAN CORPUSCULAR HGB CONC 31.7 g/dl (32.0-37.0); MEAN PLATELET VOLUME 9.6 fl (7.4-10.4); MONOCYTE # 0.8 10^3/ul (0.3-0.9); MONOCYTES % 8.1 % (0.0-11.0); NEUTROPHIL # 7.8 10^3/ul (1.6-7.5); NEUTROPHILS % 75.6 % (39.0-77.0); PLATELET COUNT 355 10^3/UL (140-415); RED BLOOD COUNT 3.19 10^6/ul (4.20-5.40); RED CELL DISTRIBUTION WIDTH 14.5 % (11.5-14.5)
[2019-06-22 06:03] LABS: ALANINE AMINOTRANSFERASE 30 IU/L (13-69); ALBUMIN 2.5 g/dl (3.3-4.9); ALBUMIN/GLOBULIN RATIO 0.83; ALKALINE PHOSPHATASE 77 IU/L (42-121); ANION GAP 7 (5-13); ASPARTATE AMINO TRANSFERASE 19 IU/L (15-46); BILIRUBIN,INDIRECT 0.1 mg/dl (0-1.1); BILIRUBIN,TOTAL 0.1 mg/dl (0.2-1.3); BLOOD UREA NITROGEN 47 mg/dl (7-20); CALCIUM 8.1 mg/dl (8.4-10.2); CARBON DIOXIDE 21 mmol/L (21-31); CHLORIDE 105 mmol/L (97-110); CREATININE 1.65 mg/dl (0.44-1.00); GLUCOSE 149 mg/dl (70-220); MAGNESIUM 1.3 mg/dl (1.7-2.5); POTASSIUM 4.3 mmol/L (3.5-5.1); SODIUM 133 mmol/L (135-144); TOTAL PROTEIN 5.5 g/dl (6.1-8.1)
[2019-06-22] MEDS: PANTOPRAZOLE (EC) 40 MG TAB PO (06:44)
[2019-06-22 07:04] LABS: HEMOGLOBIN A1C 6.7 % (0-5.9)
[2019-06-22] MEDS: ASPIRIN (EC) 81 MG TAB PO (08:50)
[2019-06-22] MEDS: GABAPENTIN 300 MG CAP PO ×3 (08:50→21:56)
[2019-06-22] MEDS: CHOLECALCIFEROL 1,000 UNIT TAB PO (08:50)
[2019-06-22] MEDS: METOPROLOL 25 MG TAB PO ×2 (08:51→21:56)
[2019-06-22] MEDS: LINAGLIPTIN 5 MG TABLET PO (08:51)
[2019-06-22] MEDS: ENOXAPARIN 30 MG/0.3 ML SYG SC (08:54)
[2019-06-22] MEDS: INSULIN ASPART [NOVOLOG] 3 ML PEN SC ×4 (08:54→21:00)
[2019-06-22] MEDS: REPAGLINIDE 1 MG TAB PO ×3 (08:55→18:58)
[2019-06-22] MEDS: SOD CHLORIDE 0.9% 1,000 ML IV (12:21)
[2019-06-22] MEDS: MAGNESIUM SULFATE 2 GM/50 ML 50 ML IVPB (13:41)
[2019-06-22] MEDS ORDERED: VANCOMYCIN IV PER PHARMACY XX (16:30)
[2019-06-22 18:18] LABS: ERYTHROCYTE SEDIMENTATION RATE 111 mm/Hr (0-30)
[2019-06-22 18:22] LABS: PROCALCITONIN 0.34 ng/mL (0.00-0.10)
[2019-06-22] MEDS: VANCOMYCIN 750 MG (PMX) 250 ML IVPB (18:57)
[2019-06-22] MEDS ORDERED: MEROPENEM 1 GM/50ML(PMX) 50 ML IVPB (21:00)
[2019-06-22] MEDS: BALSAM PERU/CASTOR OIL 60 GM TUBE TOP (21:00)
[2019-06-22] MEDS ORDERED: NON-FORMULARY/PATIENT OWN MED (Pravastatin Sodium* 20 MG) PO (21:00)
[2019-06-22] MEDS: MEROPENEM 500MG/50 ML (PMX) 50 ML IVPB (21:53)
[2019-06-22] MEDS: ATORVASTATIN 10 MG TAB PO (21:56)
[2019-06-23] MEDS: SOD CHLORIDE 0.9% 1,000 ML IV ×2 (01:48→16:06)
[2019-06-23] MEDS: ACCU-CHEK XX ×5 (02:00→22:21)
[2019-06-23] MEDS: PANTOPRAZOLE (EC) 40 MG TAB PO (05:48)
[2019-06-23] MEDS: REPAGLINIDE 1 MG TAB PO ×3 (07:00→17:30)
[2019-06-23] MEDS: INSULIN ASPART [NOVOLOG] 3 ML PEN SC ×4 (08:00→22:20)
[2019-06-23] MEDS: LINAGLIPTIN 5 MG TABLET PO (08:48)
[2019-06-23] MEDS: METOPROLOL 25 MG TAB PO ×2 (08:48→22:17)
[2019-06-23] MEDS: ASPIRIN (EC) 81 MG TAB PO (08:48)
[2019-06-23] MEDS: GABAPENTIN 300 MG CAP PO ×3 (08:48→22:18)
[2019-06-23] MEDS: CHOLECALCIFEROL 1,000 UNIT TAB PO (08:49)
[2019-06-23] MEDS: MEROPENEM 500MG/50 ML (PMX) 50 ML IVPB ×2 (08:52→22:22)
[2019-06-23] MEDS: BALSAM PERU/CASTOR OIL 60 GM TUBE TOP ×2 (09:00→22:22)
[2019-06-23] MEDS ORDERED: MINERAL OIL LIGHT 10 ML VIAL (18:03)
[2019-06-23] MEDS ORDERED: LIDOCAINE 1%/EPI 30 ML INJ (18:04)
[2019-06-23] MEDS ORDERED: MIDAZOLAM 1 MG/ML 2 ML INJ (18:15)
[2019-06-23] MEDS ORDERED: FENTAnyl 50 MCG/ML VIAL (18:15)
[2019-06-23] MEDS: POLYMYXIN/BACITRACIN 1L IRRIG (18:31)
[2019-06-23] MEDS: LIDOCAINE 1% (MPF) 30 ML INJ (18:31)
[2019-06-23] MEDS ORDERED: LIDOCAINE 2% (SDV) 5 ML INJ (18:59)
[2019-06-23] MEDS ORDERED: CEFAZOLIN 1 GM INJ (18:59)
[2019-06-23] MEDS ORDERED: ETOMIDATE 20 MG INJ (18:59)
[2019-06-23] MEDS: VANCOMYCIN 750 MG (PMX) 250 ML IVPB (22:04)
[2019-06-23] MEDS: ATORVASTATIN 10 MG TAB PO (22:16)
[2019-06-24] MEDS: ZINC SULFATE 220 MG CAP PO (00:19)
[2019-06-24] MEDS: SOD CHLORIDE 0.9% 1,000 ML IV ×2 (00:53→17:12)
[2019-06-24] MEDS: ACCU-CHEK XX ×5 (02:00→20:14)
[2019-06-24 05:29] LABS: CREATININE 1.64 mg/dl (0.44-1.00)
[2019-06-24 05:29] LABS: BLOOD UREA NITROGEN 34 mg/dl (7-20)
[2019-06-24] MEDS: PANTOPRAZOLE (EC) 40 MG TAB PO (06:23)
[2019-06-24] MEDS: INSULIN ASPART [NOVOLOG] 3 ML PEN SC ×4 (08:00→20:12)
[2019-06-24] MEDS: BALSAM PERU/CASTOR OIL 60 GM TUBE TOP ×2 (08:46→20:14)
[2019-06-24] MEDS: CHOLECALCIFEROL 1,000 UNIT TAB PO (08:46)
[2019-06-24] MEDS: REPAGLINIDE 1 MG TAB PO ×3 (08:46→17:13)
[2019-06-24] MEDS: GABAPENTIN 300 MG CAP PO ×3 (08:47→20:08)
[2019-06-24] MEDS: METOPROLOL 25 MG TAB PO ×2 (08:47→20:08)
[2019-06-24] MEDS: ASCORBIC ACID 500 MG TAB PO (08:47)
[2019-06-24] MEDS: ASPIRIN (EC) 81 MG TAB PO (08:47)
[2019-06-24] MEDS: LINAGLIPTIN 5 MG TABLET PO (08:48)
[2019-06-24] MEDS: MEROPENEM 500MG/50 ML (PMX) 50 ML IVPB ×2 (08:48→21:51)
[2019-06-24] MEDS: VANCOMYCIN 750 MG (PMX) 250 ML IVPB (18:35)
[2019-06-24] MEDS: morphine 2 MG INJ IV (19:58)
[2019-06-24] MEDS: ATORVASTATIN 10 MG TAB PO (20:09)
[2019-06-25] MEDS: ACCU-CHEK XX ×5 (02:00→21:00)
[2019-06-25 06:28] LABS: ADD MAN DIFF? NO
[2019-06-25 06:31] LABS: BASOPHILS % 0.3 % (0.0-2.0); EOSINOPHILS # 0.1 10^3/ul (0.0-0.5); EOSINOPHILS % 0.8 % (0.0-7.0); HEMATOCRIT 25.8 % (37.0-47.0); HEMOGLOBIN 8.2 g/dl (12.0-16.0); LYMPHOCYTES % 17.3 % (15.0-51.0); MEAN CORPUSCULAR HEMOGLOBIN 29.5 pg (29.0-33.0); MEAN CORPUSCULAR HGB CONC 31.8 g/dl (32.0-37.0); MEAN CORPUSCULAR VOLUME 92.8 fl (82.0-101.0); MEAN PLATELET VOLUME 9.6 fl (7.4-10.4); MONOCYTES % 8.9 % (0.0-11.0); NEUTROPHIL # 8.4 10^3/ul (1.6-7.5); NEUTROPHILS % 72.1 % (39.0-77.0); PLATELET COUNT 319 10^3/UL (140-415); RED BLOOD COUNT 2.78 10^6/ul (4.20-5.40)
[2019-06-25 06:31] LABS: WHITE BLOOD COUNT 11.7 10^3/ul (4.8-10.8)
[2019-06-25] MEDS: PANTOPRAZOLE (EC) 40 MG TAB PO (06:42)
[2019-06-25] MEDS: morphine 2 MG INJ IV (06:51)
[2019-06-25 07:03] LABS: ANION GAP 6 (5-13); BLOOD UREA NITROGEN 34 mg/dl (7-20); CALCIUM 7.9 mg/dl (8.4-10.2); CARBON DIOXIDE 16 mmol/L (21-31); CHLORIDE 113 mmol/L (97-110); CREATININE 1.63 mg/dl (0.44-1.00); GLUCOSE 154 mg/dl (70-220); POTASSIUM 4.8 mmol/L (3.5-5.1); SODIUM 135 mmol/L (135-144)
[2019-06-25] MEDS: INSULIN ASPART [NOVOLOG] 3 ML PEN SC ×4 (08:00→21:00)
[2019-06-25] MEDS: REPAGLINIDE 1 MG TAB PO ×3 (09:59→17:36)
[2019-06-25] MEDS: HYDROCODONE/APAP (5/325) TAB PO (10:00)
[2019-06-25] MEDS: LINAGLIPTIN 5 MG TABLET PO (10:00)
[2019-06-25] MEDS: GABAPENTIN 300 MG CAP PO ×3 (10:00→21:52)
[2019-06-25] MEDS: ASCORBIC ACID 500 MG TAB PO (10:00)
[2019-06-25] MEDS: ASPIRIN (EC) 81 MG TAB PO (10:00)
[2019-06-25] MEDS: METOPROLOL 25 MG TAB PO ×2 (10:01→21:53)
[2019-06-25] MEDS: BALSAM PERU/CASTOR OIL 60 GM TUBE TOP ×2 (10:03→22:10)
[2019-06-25] MEDS: MEROPENEM 500MG/50 ML (PMX) 50 ML IVPB (10:05)
[2019-06-25] MEDS: CHOLECALCIFEROL 1,000 UNIT TAB PO (10:05)
[2019-06-25] MEDS: ENOXAPARIN 30 MG/0.3 ML SYG SC (10:17)
[2019-06-25] MEDS: SOD CHLORIDE 0.9% 1,000 ML IV (13:28)
[2019-06-25] MEDS: VANCOMYCIN 750 MG (PMX) 250 ML IVPB (18:52)
[2019-06-25 19:48] LABS: VANCOMYCIN,TROUGH 14.8 ug/ml (10.0-20.0)
[2019-06-25] MEDS: ATORVASTATIN 10 MG TAB PO (21:52)
[2019-06-25] MEDS: ACETAMINOPHEN 325 MG TAB PO (22:22)
[2019-06-25] MEDS: CEFEPIME HCL 0.5 GM in SOD CHLORIDE 0.9% 50 ML IV (22:22)
[2019-06-25] MEDS: CITRIC ACID/NA CITRATE 30 ML CUP PO (22:33)
[2019-06-26] MEDS: ACCU-CHEK XX ×5 (02:00→21:58)
[2019-06-26] MEDS: PANTOPRAZOLE (EC) 40 MG TAB PO (06:22)
[2019-06-26] MEDS: CITRIC ACID/NA CITRATE 30 ML CUP PO ×2 (09:15→21:43)
[2019-06-26] MEDS: CHOLECALCIFEROL 1,000 UNIT TAB PO (09:15)
[2019-06-26] MEDS: ASPIRIN (EC) 81 MG TAB PO (09:15)
[2019-06-26] MEDS: REPAGLINIDE 1 MG TAB PO ×3 (09:15→17:48)
[2019-06-26] MEDS: ASCORBIC ACID 500 MG TAB PO (09:16)
[2019-06-26] MEDS: LINAGLIPTIN 5 MG TABLET PO (09:16)
[2019-06-26] MEDS: METOPROLOL 25 MG TAB PO ×2 (09:16→21:43)
[2019-06-26] MEDS: GABAPENTIN 300 MG CAP PO ×3 (09:16→21:43)
[2019-06-26] MEDS: INSULIN ASPART [NOVOLOG] 3 ML PEN SC ×4 (09:17→21:00)
[2019-06-26] MEDS: ENOXAPARIN 30 MG/0.3 ML SYG SC (09:18)
[2019-06-26] MEDS: BALSAM PERU/CASTOR OIL 60 GM TUBE TOP ×2 (11:38→21:45)
[2019-06-26] MEDS: CEFEPIME HCL 0.5 GM in SOD CHLORIDE 0.9% 50 ML IV (21:34)
[2019-06-26] MEDS: ATORVASTATIN 10 MG TAB PO (21:43)
[2019-06-27] MEDS: ACCU-CHEK XX ×5 (02:00→20:20)
[2019-06-27] MEDS: PANTOPRAZOLE (EC) 40 MG TAB PO (05:38)
[2019-06-27 05:45] LABS: ADD MAN DIFF? NO
[2019-06-27 05:59] LABS: BASOPHILS % 0.3 % (0.0-2.0); EOSINOPHILS # 0.2 10^3/ul (0.0-0.5); EOSINOPHILS % 1.4 % (0.0-7.0); HEMOGLOBIN 7.9 g/dl (12.0-16.0); LYMPHOCYTES # 1.4 10^3/ul (0.8-2.9); LYMPHOCYTES % 12.3 % (15.0-51.0); MEAN CORPUSCULAR HGB CONC 31.6 g/dl (32.0-37.0); MEAN CORPUSCULAR VOLUME 91.9 fl (82.0-101.0); MEAN PLATELET VOLUME 9.5 fl (7.4-10.4); MONOCYTE # 0.9 10^3/ul (0.3-0.9); MONOCYTES % 7.4 % (0.0-11.0); NEUTROPHIL # 9.1 10^3/ul (1.6-7.5); NEUTROPHILS % 78.1 % (39.0-77.0); PLATELET COUNT 375 10^3/UL (140-415); RED BLOOD COUNT 2.72 10^6/ul (4.20-5.40); RED CELL DISTRIBUTION WIDTH 15.3 % (11.5-14.5)
[2019-06-27 05:59] LABS: WHITE BLOOD COUNT 11.7 10^3/ul (4.8-10.8)
[2019-06-27 06:10] LABS: ANION GAP 4 (5-13); BLOOD UREA NITROGEN 36 mg/dl (7-20); CALCIUM 7.9 mg/dl (8.4-10.2); CARBON DIOXIDE 20 mmol/L (21-31); CHLORIDE 110 mmol/L (97-110); CREATININE 1.74 mg/dl (0.44-1.00); GLUCOSE 54 mg/dl (70-220); POTASSIUM 4.9 mmol/L (3.5-5.1); SODIUM 134 mmol/L (135-144)
[2019-06-27] MEDS: REPAGLINIDE 1 MG TAB PO ×3 (07:00→17:30)
[2019-06-27] MEDS: INSULIN ASPART [NOVOLOG] 3 ML PEN SC ×4 (08:00→20:20)
[2019-06-27] MEDS: DEXTROSE 50% 50 ML SYRINGE IV (08:10)
[2019-06-27] MEDS: METOPROLOL 25 MG TAB PO ×2 (09:00→20:27)
[2019-06-27] MEDS: ASCORBIC ACID 500 MG TAB PO (09:11)
[2019-06-27] MEDS: CHOLECALCIFEROL 1,000 UNIT TAB PO (09:11)
[2019-06-27] MEDS: ASPIRIN (EC) 81 MG TAB PO (09:12)
[2019-06-27] MEDS: LINAGLIPTIN 5 MG TABLET PO (09:12)
[2019-06-27] MEDS: CITRIC ACID/NA CITRATE 30 ML CUP PO ×2 (09:12→20:12)
[2019-06-27] MEDS: ENOXAPARIN 30 MG/0.3 ML SYG SC (09:14)
[2019-06-27] MEDS: BALSAM PERU/CASTOR OIL 60 GM TUBE TOP ×2 (09:15→20:20)
[2019-06-27] MEDS: GABAPENTIN 300 MG CAP PO ×3 (09:20→20:12)
[2019-06-27] MEDS: HYDROCODONE/APAP (5/325) TAB PO (18:46)
[2019-06-27] MEDS: DEXTROSE 5%-0.45% NACL 1,000 ML IV (20:12)
[2019-06-27] MEDS: CEFEPIME HCL 0.5 GM in SOD CHLORIDE 0.9% 50 ML IV (20:12)
[2019-06-27] MEDS: ATORVASTATIN 10 MG TAB PO (20:12)
[2019-06-28] MEDS: ACCU-CHEK XX ×5 (02:00→21:05)
[2019-06-28] MEDS: PANTOPRAZOLE (EC) 40 MG TAB PO (05:56)
[2019-06-28] MEDS: INSULIN ASPART [NOVOLOG] 3 ML PEN SC ×4 (08:00→21:00)
[2019-06-28] MEDS: METOPROLOL 25 MG TAB PO ×2 (09:00→21:04)
[2019-06-28] MEDS: GABAPENTIN 300 MG CAP PO ×3 (09:19→21:04)
[2019-06-28] MEDS: ASCORBIC ACID 500 MG TAB PO (09:20)
[2019-06-28] MEDS: ASPIRIN (EC) 81 MG TAB PO (09:20)
[2019-06-28] MEDS: CHOLECALCIFEROL 1,000 UNIT TAB PO (09:20)
[2019-06-28] MEDS: CITRIC ACID/NA CITRATE 30 ML CUP PO ×2 (09:20→21:04)
[2019-06-28] MEDS: REPAGLINIDE 1 MG TAB PO ×2 (09:20→11:30)
[2019-06-28] MEDS: LINAGLIPTIN 5 MG TABLET PO (09:20)
[2019-06-28] MEDS: BALSAM PERU/CASTOR OIL 60 GM TUBE TOP ×2 (09:21→21:05)
[2019-06-28] MEDS: ENOXAPARIN 30 MG/0.3 ML SYG SC (09:23)
[2019-06-28] MEDS: DEXTROSE 5%-0.45% NACL 1,000 ML IV ×2 (14:00→18:04)
[2019-06-28] MEDS: morphine 2 MG INJ IV ×2 (14:53→19:39)
[2019-06-28] MEDS: CEFEPIME HCL 0.5 GM in SOD CHLORIDE 0.9% 50 ML IV (21:00)
[2019-06-28] MEDS: ATORVASTATIN 10 MG TAB PO (21:04)
[2019-06-29] MEDS: ACCU-CHEK XX ×5 (01:31→20:40)
[2019-06-29] MEDS: PANTOPRAZOLE (EC) 40 MG TAB PO (06:15)
[2019-06-29] MEDS: BISACODYL (EC) 5 MG TAB PO (06:15)
[2019-06-29 06:32] LABS: ADD MAN DIFF? NO
[2019-06-29 06:37] LABS: BASOPHIL # 0.1 10^3/ul (0.0-0.1); BASOPHILS % 0.6 % (0.0-2.0); EOSINOPHILS # 0.4 10^3/ul (0.0-0.5); EOSINOPHILS % 4.3 % (0.0-7.0); HEMOGLOBIN 7.7 g/dl (12.0-16.0); LYMPHOCYTES # 1.8 10^3/ul (0.8-2.9); LYMPHOCYTES % 20.9 % (15.0-51.0); MEAN CORPUSCULAR HEMOGLOBIN 28.2 pg (29.0-33.0); MEAN CORPUSCULAR HGB CONC 29.6 g/dl (32.0-37.0); MEAN CORPUSCULAR VOLUME 95.2 fl (82.0-101.0); MEAN PLATELET VOLUME 9.5 fl (7.4-10.4); MONOCYTE # 0.7 10^3/ul (0.3-0.9); MONOCYTES % 8.2 % (0.0-11.0); NEUTROPHIL # 5.6 10^3/ul (1.6-7.5); NEUTROPHILS % 65.3 % (39.0-77.0); PLATELET COUNT 385 10^3/UL (140-415); RED BLOOD COUNT 2.73 10^6/ul (4.20-5.40); RED CELL DISTRIBUTION WIDTH 15.8 % (11.5-14.5)
[2019-06-29 06:37] LABS: WHITE BLOOD COUNT 8.6 10^3/ul (4.8-10.8)
[2019-06-29 07:05] LABS: ANION GAP 5 (5-13); BLOOD UREA NITROGEN 35 mg/dl (7-20); CALCIUM 8.2 mg/dl (8.4-10.2); CARBON DIOXIDE 23 mmol/L (21-31); CHLORIDE 107 mmol/L (97-110); CREATININE 1.86 mg/dl (0.44-1.00); GLUCOSE 105 mg/dl (70-220); POTASSIUM 5.1 mmol/L (3.5-5.1); SODIUM 135 mmol/L (135-144)
[2019-06-29] MEDS: INSULIN ASPART [NOVOLOG] 3 ML PEN SC ×4 (08:00→20:39)
[2019-06-29] MEDS: CHOLECALCIFEROL 1,000 UNIT TAB PO (09:12)
[2019-06-29] MEDS: ASCORBIC ACID 500 MG TAB PO (09:13)
[2019-06-29] MEDS: ASPIRIN (EC) 81 MG TAB PO (09:14)
[2019-06-29] MEDS: GABAPENTIN 300 MG CAP PO ×3 (09:15→20:35)
[2019-06-29] MEDS: LINAGLIPTIN 5 MG TABLET PO (09:15)
[2019-06-29] MEDS: METOPROLOL 25 MG TAB PO ×2 (09:16→20:40)
[2019-06-29] MEDS: HYDROCODONE/APAP (5/325) TAB PO (09:17)
[2019-06-29] MEDS: CITRIC ACID/NA CITRATE 30 ML CUP PO ×2 (09:17→20:35)
[2019-06-29] MEDS: BALSAM PERU/CASTOR OIL 60 GM TUBE TOP ×2 (09:18→20:39)
[2019-06-29] MEDS: ENOXAPARIN 30 MG/0.3 ML SYG SC (09:32)
[2019-06-29] MEDS: DEXTROSE 5%-0.45% NACL 1,000 ML IV ×2 (10:00→15:53)
[2019-06-29] MEDS: CEFEPIME HCL 0.5 GM in SOD CHLORIDE 0.9% 50 ML IV (20:34)
[2019-06-29] MEDS: ATORVASTATIN 10 MG TAB PO (20:35)
[2019-06-30] MEDS: ACCU-CHEK XX ×4 (02:00→17:30)
[2019-06-30 05:23] LABS: ADD MAN DIFF? NO
[2019-06-30 05:32] LABS: WHITE BLOOD COUNT 7.6 10^3/ul (4.8-10.8)
[2019-06-30 05:32] LABS: BASOPHIL # 0.1 10^3/ul (0.0-0.1); BASOPHILS % 0.8 % (0.0-2.0); EOSINOPHILS # 0.4 10^3/ul (0.0-0.5); EOSINOPHILS % 4.8 % (0.0-7.0); HEMATOCRIT 25.2 % (37.0-47.0); HEMOGLOBIN 7.6 g/dl (12.0-16.0); LYMPHOCYTES # 1.7 10^3/ul (0.8-2.9); LYMPHOCYTES % 22.5 % (15.0-51.0); MEAN CORPUSCULAR HGB CONC 30.2 g/dl (32.0-37.0); MEAN PLATELET VOLUME 9.6 fl (7.4-10.4); MONOCYTE # 0.7 10^3/ul (0.3-0.9); MONOCYTES % 8.5 % (0.0-11.0); NEUTROPHIL # 4.8 10^3/ul (1.6-7.5); NEUTROPHILS % 62.6 % (39.0-77.0); PLATELET COUNT 384 10^3/UL (140-415); RED BLOOD COUNT 2.71 10^6/ul (4.20-5.40); RED CELL DISTRIBUTION WIDTH 15.8 % (11.5-14.5)
[2019-06-30 05:58] LABS: ANION GAP 4 (5-13); BLOOD UREA NITROGEN 37 mg/dl (7-20); CALCIUM 8.2 mg/dl (8.4-10.2); CARBON DIOXIDE 23 mmol/L (21-31); CHLORIDE 108 mmol/L (97-110); CREATININE 1.76 mg/dl (0.44-1.00); GLUCOSE 108 mg/dl (70-220); POTASSIUM 5.4 mmol/L (3.5-5.1); SODIUM 135 mmol/L (135-144)
[2019-06-30] MEDS: DEXTROSE 5%-0.45% NACL 1,000 ML IV ×2 (06:00→15:04)
[2019-06-30] MEDS: PANTOPRAZOLE (EC) 40 MG TAB PO (06:03)
[2019-06-30] MEDS: INSULIN ASPART [NOVOLOG] 3 ML PEN SC ×3 (08:00→18:00)
[2019-06-30] MEDS: LINAGLIPTIN 5 MG TABLET PO (08:47)
[2019-06-30] MEDS: CHOLECALCIFEROL 1,000 UNIT TAB PO (08:47)
[2019-06-30] MEDS: GABAPENTIN 300 MG CAP PO ×2 (08:47→13:00)
[2019-06-30] MEDS: ASCORBIC ACID 500 MG TAB PO (08:47)
[2019-06-30] MEDS: METOPROLOL 25 MG TAB PO (08:47)
[2019-06-30] MEDS: CITRIC ACID/NA CITRATE 30 ML CUP PO (08:47)
[2019-06-30] MEDS: ASPIRIN (EC) 81 MG TAB PO (08:47)
[2019-06-30] MEDS: BALSAM PERU/CASTOR OIL 60 GM TUBE TOP (08:48)
[2019-06-30] MEDS: ENOXAPARIN 30 MG/0.3 ML SYG SC (08:52)
[2019-06-30] MEDS: CEFEPIME HCL 0.5 GM in SOD CHLORIDE 0.9% 50 ML IV (18:03)
[2019-06-30] MEDS: HYDROCODONE/APAP (5/325) TAB PO (19:37)
== END 2019-06-30 20:10 | disposition home health service (06) | DRG 239 ==
LOC: E/R 13:43 → 2NE 16:22
PROC: 0Y6M0Z9 Detachment at Right Foot, Partial 1st Ray, Open Approach (ICD-10-PCS; principal; 2019-06-23 18:10)
PROC: 0Y6M0ZB Detachment at Right Foot, Partial 2nd Ray, Open Approach (ICD-10-PCS; 2019-06-23 18:10)
PROC: 0Y6M0ZC Detachment at Right Foot, Partial 3rd Ray, Open Approach (ICD-10-PCS; 2019-06-23 18:10)
PROC: 0Y6M0ZD Detachment at Right Foot, Partial 4th Ray, Open Approach (ICD-10-PCS; 2019-06-23 18:10)
PROC: 0Y6M0ZF Detachment at Right Foot, Partial 5th Ray, Open Approach (ICD-10-PCS; 2019-06-23 18:10)
PROC: 0JUQ0KZ Supplement of Right Foot Subcutaneous Tissue and Fascia with Nonautologous Tissue Substitute, Open Approach (ICD-10-PCS; 2019-06-23 18:10)
DX: E11.52 Type 2 diabetes mellitus with diabetic peripheral angiopathy with gangrene (principal); N17.0 Acute kidney failure with tubular necrosis; I96 Gangrene, not elsewhere classified; N39.0 Urinary tract infection, site not specified; E87.1 Hypo-osmolality and hyponatremia; I12.9 Hypertensive chronic kidney disease with stage 1 through stage 4 chronic kidney disease, or unspecified chronic kidney disease; E11.22 Type 2 diabetes mellitus with diabetic chronic kidney disease; N18.9 Chronic kidney disease, unspecified; Z66 Do not resuscitate; E11.621 Type 2 diabetes mellitus with foot ulcer
CPT/HCPCS: 36415; 36573; 71045; 73630; 80048; 80053; 80202; 81001; 82565; 82962; 83036; 83605; 83735; 84145; 84484; 84520; 85025; 85610; 85651; 85730; 87040-91; 87070; 87081; 87086; 88305; 93005; 97110; 97162; 97530; 99285-25